=== PATIENT | female | born 1935 | race Caucasian/White ===

== ENCOUNTER 2017-06-15 12:38 | Inpatient (IN) | payer MEDICARE ==
[~2017-06-15] VITALS: Ht 160 cm; Wt 52.2 kg
[2017-06-15 13:10] VITALS: BP 140/79
--- NOTE | 2017-06-15 13:58 | Emergency Room Report ---
History of Present Illness General Chief Complaint: Syncope Source: Family Member (HANNAH CORBETT M.D.) Present Illness HPI 82-year-old female brought from home for question of altered mental status Patient has history of advanced dementia/Alzheimer's Her daughter, caregiver told her yesterday that 2 days ago she noticed a facial droop in patient but unsure which side of mouth droop Daughter felt that since patient was "okay" yesterday, didn't need to go to the hospital for evaluation However this morning daughter and noted patient "more altered than usual ", eyes closed less responsive than usual. Daughter states that patient had already gone through state of dementia with agitation and insomnia, mother now much more calm, relaxed and sleeping better. Of atrial fib, on xarelto No other medical problems, medication Doesnt take any other pain/anxiety medications family denies any recent fever or chills Denies any cough or vomiting recently (HANNAH CORBETT M.D.) Allergies: Coded Allergies: IODINE (Verified Allergy, Unknown, 06/15/17) TURKEY (Verified Allergy, Unknown, 06/15/17) Patient History Past Medical History: AFib Past Surgical History: none Pertinent Family History: none Social History: Denies: smoking, alcohol use, drug use Now: No Immunizations: UTD Reviewed Nursing Documentation: PMH: Agreed, PSxH: Agreed (HANNAH CORBETT M.D.) Review of Systems All Other Systems: negative except mentioned in HPI (HANNAH CORBETT M.D.) Physical Exam Vital Signs Date Time Temp Pulse Resp B/P (MAP) Pulse Ox O2 Delivery O2 Flow Rate FiO2 06/15/17 12:33 98.4 97 140/79 97 Room Air Sp02 EP Interpretation: reviewed, normal General Appearance: normal inspection, well appearing, no apparent distress, non-toxic, other - Response to painful stimuli Head: normocephalic, atraumatic Eyes: bilateral eye PERRL, bilateral eye EOMI ENT: normal ENT inspection, hearing grossly normal, normal pharynx, no angioedema, normal voice, TMs + canals normal, uvula midline, moist mucus membranes Neck: normal inspection, full range of motion, supple, thyroid normal, no meningismus, no bony tend Respiratory: normal inspection, lungs clear, normal breath sounds, no rhonchi, no respiratory distress, no retraction, no accessory muscle use, no wheezing, speaking full sentences Cardiovascular #1: regular rate, rhythm, no edema, no JVD, normal capillary refill Gastrointestinal: normal inspection, normal bowel sounds, non tender, soft, no mass, no peritonitis, non-distended, no guarding, no hernia, no pulsatile mass Genitourinary: no CVA tenderness Musculoskeletal: normal inspection, back normal, normal range of motion, no calf tenderness, pelvis stable, Tierney's Sign negative Neurologic: normal inspection, alert, responsive, motor strength/tone normal, cerebellar normal, normal gait, speech normal, other - Extremities not contracted Psychiatric: normal inspection, judgement/insight normal, mood/affect normal, no suicidal/homicidal ideation, no delusions Skin: normal inspection, normal color, no rash Lymphatic: normal inspection, no adenopathy (HANNAH CORBETT M.D.) Medical Decision Making Diagnostic Impression: Primary Impression: Altered mental status Qualified Codes: R41.82 - Altered mental status, unspecified Additional Impression: UTI (urinary tract infection) Qualified Codes: N30.01 - Acute cystitis with hematuria ER Course Transient alteration in consciousness Vital signs stable, afebrile Patient has atrial fib, however not in RVR No ischemia on EKG CT head on ER review does not show acute bleed Labs pending at time of signout Endorsed at 230pm to Dr Yepez to f/up labs and admit for AMS (HANNAH CORBETT M.D.) ER Course I received signout from Dr. Corbett 82-year-old female Alzheimer's, progressive dementia for the last 6 months, now unresponsive/ lethargic for the last few days Currently at bedside, patient is with eyes closed, moaning incomprehensible sounds, vital signs are normal and stable patient with UTI NS given abx given Admit to med surg Laboratory Tests Test 06/15/17 14:40 06/15/17 16:15 White Blood Count 11.6 K/UL (4.8-10.8) H Red Blood Count 3.74 M/UL (4.20-5.40) L Hemoglobin 11.2 G/DL (12.0-16.0) L Hematocrit 33.8 % (37.0-47.0) L Mean Corpuscular Volume 90 FL (80-99) Mean Corpuscular Hemoglobin 29.9 PG (27.0-31.0) Mean Corpuscular Hemoglobin Concent 33.1 G/DL (32.0-36.0) Red Cell Distribution Width 12.1 % (11.6-14.8) Platelet Count 534 K/UL (150-450) H Mean Platelet Volume 5.5 FL (6.5-10.1) L Neutrophils (%) (Auto) 78.6 % (45.0-75.0) H Lymphocytes (%) (Auto) 11.3 % (20.0-45.0) L Monocytes (%) (Auto) 8.1 % (1.0-10.0) Eosinophils (%) (Auto) 1.3 % (0.0-3.0) Basophils (%) (Auto) 0.7 % (0.0-2.0) Sodium Level 136 MMOL/L (136-145) Potassium Level 4.6 MMOL/L (3.5-5.1) Chloride Level 101 MMOL/L (98-107) Carbon Dioxide Level 27 MMOL/L (21-32) Anion Gap 9 mmol/L (5-15) Blood Urea Nitrogen 20 mg/dL (7-18) H Creatinine 0.6 MG/DL (0.55-1.30) Estimate Glomerular Filtration Rate mL/min (>60) Glucose Level 107 MG/DL (74-106) H Calcium Level 8.4 MG/DL (8.5-10.1) L Total Bilirubin 0.6 MG/DL (0.2-1.0) Aspartate Amino Transferase (AST) 34 U/L (15-37) Alanine Aminotransferase (ALT) 14 U/L (12-78) Alkaline Phosphatase 72 U/L (46-116) Total Creatine Kinase 31 U/L (26-308) Creatine Kinase MB < 0.5 NG/ML (0.0-3.6) Creatine Kinase MB Relative Index 1.6 Troponin I 0.003 ng/mL (0.000-0.056) Total Protein 7.5 G/DL (6.4-8.2) Albumin 2.6 G/DL (3.4-5.0) L Globulin 4.9 g/dL Albumin/Globulin Ratio 0.5 (1.0-2.7) L Urine Color Pale yellow Urine Appearance Cloudy Urine pH 6.5 (4.5-8.0) Urine Specific [place] 1.010 (1.005-1.035) Urine Protein Negative (NEGATIVE) Urine Glucose (UA) Negative (NEGATIVE) Urine Ketones Negative (NEGATIVE) Urine Occult Blood 2+ (NEGATIVE) H Urine Nitrite Negative (NEGATIVE) Urine Bilirubin Negative (NEGATIVE) Urine Urobilinogen Normal MG/DL (0.0-1.0) Urine Leukocyte Esterase 3+ (NEGATIVE) H Urine RBC 5-10 /HPF (0 - 2) H Urine WBC Tntc /HPF (0 - 2) H Urine Squamous Epithelial Cells None /LPF (NONE/OCC) Urine Bacteria Many /HPF (NONE) H (Channing Yepez M.D.) EKG Diagnostic Results Rate: normal Rhythm: other - atrial fib ST Segments: no acute changes ASA given to the pt in ED: No (HANNAH CORBETT M.D.) Rhythm Strip Diag. Results EP Interpretation: yes Rate: 85 Rhythm: no PVC's, no ectopy (HANNAH CORBETT M.D.) CT/MRI/US Diagnostic Results CT/MRI/US Diagnostic Results : Imaging Test Ordered: CT HEad Impression FINDINGS: No acute hemorrhage or edema. No mass effect or midline shift. There is age-related enlargement of the ventricles and extra axial CSF spaces. There is periventricular deep white matter ischemic change. Normal juarez-white differentiation. Visualized orbits are unremarkable. Visualized sinuses are unremarkable. Intact calvarium. IMPRESSION: Chronic and age-related changes. Negative for acute intracranial bleed or mass effect Stat code stroke findings discussed by phone with Dr. Corbett in the emergency room at the time of interpretation (Channing Yepez M.D.) Last Vital Signs Date Time Temp Pulse Resp B/P (MAP) Pulse Ox O2 Delivery O2 Flow Rate FiO2 06/15/17 12:33 98.4 97 140/79 97 Room Air Status: improved (HANNAH CORBETT M.D.) Disposition: ADMITTED INPATIENT Condition: Serious HANNAH CORBETT M.D. Jun 15, 2017 13:58 Channing Yepez M.D. Jun 15, 2017 15:22
--- NOTE | 2017-06-15 14:03 | Diagnostic Imaging Report ---
Indication: Pain Technique: One view of the chest Comparison: none Findings: There is marked elevation of the right hemidiaphragm. The lungs and pleural spaces are clear. The heart size is normal. Impression: No acute process
--- NOTE | 2017-06-15 14:03 | Diagnostic Imaging Report ---
Indication: Altered mental status Technique: spiral acquisitions obtained through the brain. Angled axial and coronal 5 x 5 mm slices were reconstructed. No IV contrast utilized. Radiation dose was minimized using automated exposure control Total dose length product 1400.61 mGycm. CTDIvol(s) 70.38 mGy Comparison: none FINDINGS: No acute hemorrhage or edema. No mass effect or midline shift. There is age-related enlargement of the ventricles and extra axial CSF spaces. There is periventricular deep white matter ischemic change. Normal juarez-white differentiation. Visualized orbits are unremarkable. Visualized sinuses are unremarkable. Intact calvarium. IMPRESSION: Chronic and age-related changes. Negative for acute intracranial bleed or mass effect Stat code stroke findings discussed by phone with Dr. Canela in the emergency room at the time of interpretation The CT scanner at [facility] is accredited by the [employer] and the scans are performed using protocols designed to limit radiation exposure to as low as reasonably achievable to attain images of sufficient resolution adequate for diagnostic evaluation
[2017-06-15 14:25] VITALS: BP 127/84
[2017-06-15 15:04] LABS: BASOPHILS % (AUTO) 0.7 % (0.0-2.0); EOSINOPHILS % (AUTO) 1.3 % (0.0-3.0); HEMATOCRIT 33.8 % (37.0-47.0); HEMOGLOBIN 11.2 G/DL (12.0-16.0); LYMPHOCYTES % (AUTO) 11.3 % (20.0-45.0); MEAN CORPUSCULAR VOLUME 90 FL (80-99); MONOCYTES % (AUTO) 8.1 % (1.0-10.0); NEUTROPHILS % (AUTO) 78.6 % (45.0-75.0); PLATELET COUNT 534 K/UL (150-450); RED BLOOD COUNT 3.74 M/UL (4.20-5.40); RED CELL DISTRIBUTION WIDTH 12.1 % (11.6-14.8); WHITE BLOOD COUNT 11.6 K/UL (4.8-10.8)
[2017-06-15 15:31] LABS: ALANINE AMINOTRANSFERASE 14 U/L (12-78); ALBUMIN 2.6 G/DL (3.4-5.0); ALBUMIN/GLOBULIN RATIO 0.5 (1.0-2.7); ALKALINE PHOSPHATASE 72 U/L (46-116); ANION GAP 9 mmol/L (5-15); ASPARTATE AMINO TRANSFERASE 34 U/L (15-37); BILIRUBIN,TOTAL 0.6 MG/DL (0.2-1.0); CALCIUM 8.4 MG/DL (8.5-10.1); CKMB < 0.5 NG/ML (0.0-3.6)
[2017-06-15 15:52] LABS: BLOOD UREA NITROGEN 20 mg/dL (7-18); CARBON DIOXIDE 27 MMOL/L (21-32); CHLORIDE 101 MMOL/L (98-107); CREATINE KINASE 31 U/L (26-308); CREATININE 0.6 MG/DL (0.55-1.30); POTASSIUM 4.6 MMOL/L (3.5-5.1); SODIUM 136 MMOL/L (136-145)
[2017-06-15 16:32] LABS: APPEARANCE,URINE CLOUDY; BILIRUBIN, URINE NEGATIVE (NEGATIVE); COLOR,URINE PALE YELLOW; GLUCOSE, URINE (UA) NEGATIVE (NEGATIVE); KETONES,URINE NEGATIVE (NEGATIVE); LEUKOCYTE ESTERASE ,URINE 3+ (NEGATIVE); NITRITE,URINE NEGATIVE (NEGATIVE); PH,URINE 6.5 (4.5-8.0); PROTEIN,URINE NEGATIVE (NEGATIVE); UROBILINOGEN,URINE NORMAL MG/DL (0.0-1.0)
[2017-06-15 16:35] VITALS: BP 117/73
[2017-06-15] MEDS ORDERED: cefTRIAXone 1 GM in NS 55 ML IVPB ONE (17:15)
[2017-06-15 18:57] VITALS: BP 147/99
[2017-06-15] MEDS ORDERED: NAMENDA XR7 MG PO (20:06)
[2017-06-15] MEDS ORDERED: CARVEDILOL12.5 MG ORAL (20:06)
[2017-06-15] MEDS ORDERED: MIRTAZAPINE15 M3 ORAL (20:06)
[2017-06-15] MEDS ORDERED: LORAZEPAM0.5 MG ORAL (20:06)
[2017-06-15] MEDS ORDERED: XARELTO15 MG ORAL (20:06)
[2017-06-15 20:47] VITALS: BP 114/95
[2017-06-15 21:51] VITALS: BP 110/68
[2017-06-16] VITALS: BP 137/79
[2017-06-16 04:24] VITALS: BP 148/78
[2017-06-16 08:00] VITALS: BP 133/81
[2017-06-16] MEDS ORDERED: Xarelto 15mg tab ORAL SCH (10:30)
[2017-06-16] MEDS ORDERED: D5 1/2NS 1,000 ML IV SCH (10:30)
[2017-06-16] MEDS: Memantine 5 MG TAB ORAL SCH ×2 (11:17→17:35)
[2017-06-16 12:00] VITALS: BP 121/81
[2017-06-16] MEDS ORDERED: cefTRIAXone 1 GM in D5W 55 ML IVPB SCH (12:00)
--- NOTE | 2017-06-16 15:47 | Consultation ---
History of Present Illness General Date patient seen: Jun 16, 2017 Time patient seen: 13:00 Chief Complaint: Syncope Referring physician: dr Aguirre Reason for Consultation: in hospital management Present Illness HPI 82-y/old female with PMH of A fib, Alzeimer dementia brought from home for evalaution of altered mental status Patient with history of advanced dementia/Alzheimer's On the morning prior to ED arrival family noted patient being "more altered than usual", eyes closed, less responsive than usual. Patient was not on any pain/anti-anxiety medications Family denied any recent fever or chills Family denied any cough, diarrhea or vomiting recently Workup in ED initiated and revealed leukocytosis-11.6 UA with gross evidence of UTI ECG with A fib with controlled ventricular response troponin negative CXR no acute cardiopulmonary pathology CT head no acute intracranial pathology mild anemia- 11.2/33.8 patient was admitted for further management Allergies: Coded Allergies: IODINE (Verified Allergy, Unknown, 06/15/17) TURKEY (Verified Allergy, Unknown, 06/15/17) Medication History Scheduled Carvedilol* (Carvedilol*), 12.5 MG ORAL EVERY 12 HOURS, (Reported) Memantine Hcl (Namenda Xr), 7 MG PO DAILY, (Reported) Mirtazapine* (Mirtazapine*), 15 MG ORAL BEDTIME, (Reported) Rivaroxaban (Xarelto), 15 MG ORAL DAILY, (Reported) Scheduled PRN Lorazepam* (Lorazepam*), 0.5 MG ORAL for For Anxiety, (Reported) Patient History History Provided By: Medical Record Healthcare decision maker Family Resuscitation status Full Code Advanced Directive on File No Review of Systems ROS Narrative unable to obtain any info due to ALOC Physical Exam General Appearance: no apparent distress, alert Lines, tubes and drains: peripheral HEENT: normocephalic, atraumatic Neck: non-tender, supple Respiratory/Chest: lungs clear, no respiratory distress, no accessory muscle use Cardiovascular/Chest: normal peripheral pulses, normal rate, no JVD Abdomen: normal bowel sounds, soft Extremities: non-tender, no calf tenderness, other - extremities not contracted Last 24 Hour Vital Signs Date Time Temp Pulse Resp B/P (MAP) Pulse Ox O2 Delivery O2 Flow Rate FiO2 06/16/17 12:00 98.8 134 19 121/81 95 06/16/17 08:00 99.7 114 19 133/81 94 Room Air 06/16/17 04:24 96.5 111 18 148/78 98 Room Air 06/16/17 00:00 98.9 95 19 137/79 98 Room Air 06/15/17 21:51 85 20 110/68 100 Room Air 06/15/17 21:51 98.4 85 20 114/95 100 Room Air 06/15/17 20:47 98.4 104 14 114/95 99 Room Air 06/15/17 18:57 98.4 147/99 97 Room Air 06/15/17 16:35 98.4 117/73 97 Room Air Intake and Output 06/15/17 06/16/17 19:00 07:00 Intake Total 0 ml Output Total 975 ml Balance 0 ml -975 ml Intake Oral 0 ml Output Urine Total 975 ml # Bowel Movements 1 Laboratory Tests Test 06/15/17 16:15 Urine Color Pale yellow Urine Appearance Cloudy Urine pH 6.5 (4.5-8.0) Urine Specific [place] 1.010 (1.005-1.035) Urine Protein Negative (NEGATIVE) Urine Glucose (UA) Negative (NEGATIVE) Urine Ketones Negative (NEGATIVE) Urine Occult Blood 2+ (NEGATIVE) H Urine Nitrite Negative (NEGATIVE) Urine Bilirubin Negative (NEGATIVE) Urine Urobilinogen Normal MG/DL (0.0-1.0) Urine Leukocyte Esterase 3+ (NEGATIVE) H Urine RBC 5-10 /HPF (0 - 2) H Urine WBC Tntc /HPF (0 - 2) H Urine Squamous Epithelial Cells None /LPF (NONE/OCC) Urine Bacteria Many /HPF (NONE) H Microbiology Date/Time Source Procedure Growth Status 06/15/17 16:15 Urine,Clean Catch Urine Culture - Preliminary Gram Negative Bacillus 1 Resulted Height (Feet): 5 Height (Inches): 3.00 Weight (Pounds): 115 Medications Current Medications Medications (Trade) Dose Ordered Sig/Chris Route PRN Reason Start Time Stop Time Status Last Admin Dose Admin Carvedilol (Coreg) 3.125 mg EVERY 12 HOURS ORAL 06/16/17 21:00 07/16/17 20:59 Ceftriaxone Sodium 1 gm/ Dextrose 55 ml @ 110 mls/hr Q24H IVPB 06/16/17 12:00 06/23/17 11:59 06/16/17 11:27 Dextrose/Sodium Chloride 1,000 ml @ 75 mls/hr [id number] IV 06/16/17 10:30 07/16/17 10:29 06/16/17 11:00 Memantine (Namenda) 5 mg BID ORAL 06/16/17 10:30 07/16/17 10:29 06/16/17 11:17 Rivaroxaban (Xarelto) 15 mg DAILY ORAL 06/16/17 10:30 07/16/17 10:29 06/16/17 11:17 Assessment/Plan Assessment/Plan ASSESSMENT Acute toxic metabolic encephalopathy on chronic dementia UTI with GNB Permanent A fib WITH rvr NOW ? accelerated junctional rhythm Protein calorie malnutrition advanced Alzheimer dementia anemia PLAN OF CARE IVF empiric abx fup with urine cx home meds resumed, including BB and Xarelto ECG done now due to tachycardia- accelerated junctional rhythm 110-, under close examining - AFib with RVR cardio eval pending transfer to tele monitor HH, anemia w/up if trend down swallow eval dietary eval and recommendations re nutritional support case discussed and evaluated by supervising physician Curt (Luke),Adriana REYES Jun 16, 2017 15:47
[2017-06-16 16:00] VITALS: BP 119/78
--- NOTE | 2017-06-16 16:58 | History & Physical ---
History and Physical History & Physicial Dictated for Int Med-Dr Aguirre no. [id number]. KSENIA PEREZ Jun 16, 2017 16:58
--- NOTE | 2017-06-16 18:00 | History and Physical Report ---
DATE OF ADMISSION: 06/15/2017 CHIEF COMPLAINT: The patient is an 82-year-old white female, who presents with chief complaint of altered mental status. HISTORY OF PRESENT ILLNESS: Much of the history and physical is obtained from the patient's caregiver and the patient's . The patient herself has Alzheimer dementia and is unable to contribute much to the history and physical. Per the patient's , the patient "looked like she was going to faint" yesterday, 06/15/2017. The patient's has a home blood pressure monitor. Blood pressure was reading 67/40. The patient was somewhat unresponsive. The patient was transported to [facility] via emergency medical services. The patient was found to have atrial fibrillation with rapid ventricular rate in the emergency room. The patient also was found to have urinary tract infection. The patient is admitted for altered mental status, urinary tract infection, and atrial fibrillation with rapid ventricular rate. REVIEW OF SYSTEMS: unable to assess secondary to the patient's mental status. PAST MEDICAL HISTORY: Significant for: 1. Alzheimer dementia. 2. Atrial fibrillation. PAST SURGICAL HISTORY: The patient denies. CURRENT MEDICATIONS: 1. Carvedilol 12.5 mg p.o. twice daily. 2. Lorazepam 0.5 mg p.o. q.6 hours p.r.n. 3. Namenda XR 7 mg p.o. daily. 4. Mirtazapine 15 mg p.o. p.r.n. 5. Xarelto 15 mg p.o. daily. ALLERGIES: To iodine and turkey. SOCIAL HISTORY: The patient is . The patient lives at home with her . The patient denies tobacco or alcohol use. PHYSICAL EXAMINATION: VITAL SIGNS: Temperature 98.4, respirations 20, pulse 85-134, blood pressure 110-148/78-95. GENERAL: The patient is a well-developed, well-nourished, somnolent white female, in no apparent distress. HEENT: Eyes, pupils equal and responsive to light and accommodation. Extraocular movements are intact. NECK: Supple without lymphadenopathy. CHEST: Lungs are clear to auscultation bilaterally without wheezes or rales. CARDIOVASCULAR: Regular rate. S1, S2 normal without murmurs, rubs, or gallops. ABDOMEN: Soft, nontender, nondistended. Positive bowel sounds. No evidence of hepatosplenomegaly. Currently, no rebound or guarding noted. EXTREMITIES: Negative for clubbing, cyanosis, or edema. RECTAL: Refused. GENITAL: Refused. NEUROLOGICAL: Cranial nerves II through XII grossly intact without focal deficits. Motor strength is 5/5 bilaterally. Deep tendon reflexes are 2+, plantar. LABORATORY STUDIES: WBC 11.6, hemoglobin 11.2, hematocrit 33.8, platelets 534,000. Sodium 136, potassium 4.6, chloride 101, CO2 27, BUN 20, creatinine 0.6, glucose 107. Troponin 0.003. Urinalysis showed 3+ leukocyte esterase with WBCs too numerous to count. Chest x-ray was reported as no acute disease. A CT scan of the brain revealed chronic age-related changes, however, negative for intracranial bleed or mass effect. ASSESSMENT: This is an 82-year-old white female with: 1. Urinary tract infection. 2. Altered mental status. 3. Atrial fibrillation with rapid ventricular rate. 4. Alzheimer dementia. TREATMENT: 1. Urinary tract infection. The patient has been placed empirically on Rocephin. A urine culture is pending. We will await culture and sensitivity results. 2. Altered mental status. This may be secondary to urinary tract infection versus acute cerebrovascular accident versus atrial fibrillation as above. Neurology consultation has been obtained with Dr. Cooley and cardiology consultation has been obtained with Dr. Osuna. We will follow recommendations of cardiology and neurology. 3. Atrial fibrillation with rapid ventricular rate. The patient will be transferred to the telemetry unit. Cardiology consultation has been obtained with Dr. Chip Osuna. 4. Alzheimer dementia. Continue Namenda as above. Clay Rick M.D. DR: Olu JOB#: [id number] CC:
[2017-06-16 18:55] LABS: BASOPHILS % (AUTO) 2.1 % (0.0-2.0); EOSINOPHILS % (AUTO) 1.6 % (0.0-3.0); HEMATOCRIT 32.8 % (37.0-47.0); HEMOGLOBIN 10.6 G/DL (12.0-16.0); LYMPHOCYTES % (AUTO) 14.9 % (20.0-45.0); MEAN CORPUSCULAR VOLUME 90 FL (80-99); MONOCYTES % (AUTO) 7.6 % (1.0-10.0); NEUTROPHILS % (AUTO) 73.8 % (45.0-75.0); PLATELET COUNT 542 K/UL (150-450); RED BLOOD COUNT 3.63 M/UL (4.20-5.40); RED CELL DISTRIBUTION WIDTH 11.5 % (11.6-14.8); WHITE BLOOD COUNT 10.7 K/UL (4.8-10.8)
--- NOTE | 2017-06-16 18:55 | Cardiac Electrophysiology PN ---
Subjective Subjective [id number] Objective Last 24 Hour Vital Signs Date Time Temp Pulse Resp B/P (MAP) Pulse Ox O2 Delivery O2 Flow Rate FiO2 06/16/17 16:00 99.0 103 18 119/78 98 06/16/17 12:00 98.8 134 19 121/81 95 06/16/17 08:00 99.7 114 19 133/81 94 Room Air 06/16/17 04:24 96.5 111 18 148/78 98 Room Air 06/16/17 00:00 98.9 95 19 137/79 98 Room Air 06/15/17 21:51 85 20 110/68 100 Room Air 06/15/17 21:51 98.4 85 20 114/95 100 Room Air 06/15/17 20:47 98.4 104 14 114/95 99 Room Air 06/15/17 18:57 98.4 147/99 97 Room Air Intake and Output 06/15/17 06/16/17 19:00 07:00 Intake Total 0 ml Output Total 975 ml Balance 0 ml -975 ml Intake Oral 0 ml Output Urine Total 975 ml # Bowel Movements 1 Laboratory Tests Test 06/16/17 18:25 White Blood Count Pending Red Blood Count Pending Hemoglobin Pending Hematocrit Pending Mean Corpuscular Volume Pending Mean Corpuscular Hemoglobin Pending Mean Corpuscular Hemoglobin Concent Pending Red Cell Distribution Width Pending Platelet Count Pending Mean Platelet Volume Pending Neutrophils (%) (Auto) Pending Lymphocytes (%) (Auto) Pending Monocytes (%) (Auto) Pending Eosinophils (%) (Auto) Pending Basophils (%) (Auto) Pending Sodium Level Pending Potassium Level Pending Chloride Level Pending Carbon Dioxide Level Pending Blood Urea Nitrogen Pending Creatinine Pending Estimat Glomerular Filtration Rate Pending Glucose Level Pending Calcium Level Pending Troponin I Pending Pro-B-Type Natriuretic Peptide Pending Microbiology Date/Time Source Procedure Growth Status 06/15/17 16:15 Urine,Clean Catch Urine Culture - Preliminary Gram Negative Bacillus 1 Resulted JOSE WHITLOCK Jun 16, 2017 18:55
[2017-06-16] MEDS ORDERED: Digoxin 0.5mg/2ml Inj IVP ONE ×2 (19:00)
[2017-06-16 19:15] LABS: ANION GAP 9 mmol/L (5-15); BLOOD UREA NITROGEN 19 mg/dL (7-18); CALCIUM 7.8 MG/DL (8.5-10.1); CARBON DIOXIDE 24 MMOL/L (21-32); CHLORIDE 102 MMOL/L (98-107); CREATININE 0.9 MG/DL (0.55-1.30); SODIUM 135 MMOL/L (136-145)
[2017-06-16 20:06] VITALS: BP 141/89
[2017-06-16] MEDS: Carvedilol 6.25mg Tab ORAL SCH (20:29)
[2017-06-16] MEDS: D5 1/2NS 1,000 ML IV SCH (20:33)
[2017-06-16] MEDS ORDERED: Carvedilol 6.25mg Tab ORAL SCH (21:00)
--- NOTE | 2017-06-16 21:15 | Consultation ---
DATE OF CONSULTATION: 06/16/2017 CARDIOLOGY CONSULTATION CONSULTING PHYSICIAN: Chip Osuna M.D. REFERRING PHYSICIAN: Nhan Aguirre M.D. REASON FOR CONSULTATION: Atrial fibrillation with rapid ventricular response. HISTORY OF PRESENT ILLNESS: The patient is an 82-year-old lady with history of hypertension and paroxysmal atrial fibrillation under care of who now was brought to the emergency room for altered mental status. All the information was obtained by reviewing the patient's records as well as intervening the patient's as well as caregiver. She has advanced dementia and unable to provide much information. The patient has a home blood pressure monitored that showed a blood pressure of 67/40. The patient was partially unresponsive. The patient was brought to the emergency room and was admitted straight to the non-monitored bed for urinary tract infection. However, the patient was noted to be tachycardic, atrial fibrillation with rapid ventricular response and was then transferred to the telemetry floor. At the time of my evaluation, the patient is still confused and is still tachycardic with heart rate in the 130s. PAST MEDICAL HISTORY: 1. Hypertension. 2. Paroxysmal atrial fibrillation. MEDICATIONS: At home include Coreg 12.5 mg twice a day, Namenda, and . ALLERGIES: She is allergic to iodine and turkey. SOCIAL HISTORY: She is . Lives with her . Does not smoke or drink alcohol. REVIEW OF SYSTEMS: Negative other than what was mentioned in history of present illness. PHYSICAL EXAMINATION: VITAL SIGNS: Blood pressure 118/90, pulse 135, respirations 18, and she is afebrile. HEAD AND NECK: Shows no JVD. LUNGS: Decreased breath sounds. CARDIOVASCULAR: Shows irregularly irregular. Tachycardic. S1 and S2 with no gallop or murmur. ABDOMEN: Soft and nontender. EXTREMITIES: No pitting edema. LABORATORY AND DIAGNOSTIC DATA: EKG showed atrial fibrillation with rapid ventricular response. Labs show white count of 11.6, hemoglobin 11.2, hematocrit 33.8, and platelet count 534. Sodium 136, potassium 4.3, BUN of 20, creatinine 0.6, and glucose of 107. Troponin negative x2. Urinalysis is numerous WBC and 2+ occult blood, many bacteria. ASSESSMENT AND PLAN: 1. Atrial fibrillation with rapid ventricular response. The patient is already on Xarelto for anticoagulation. I will give the patient 0.25 mg of intravenous digoxin and hopefully get the heart rate better controlled. If that does not do the trick we may need to transfer the patient to intensive care to start the patient on Cardizem drip. In the meantime, I will increase the Coreg to 6.25 mg twice a day. 2. Hypertension. Increase the Coreg. 3. Urinary tract infection on ceftriaxone. 4. Dementia on Namenda. Thank you very much, Dr. Aguirre, for allowing me to participate in the care of this patient. Please do not hesitate to contact for any questions regarding my evaluation. Chip Osuna M.D. DR: HAILEY JOB#: [id number] CC:
[2017-06-17 00:05] VITALS: BP 103/58
[2017-06-17 03:54] VITALS: BP 120/59
[2017-06-17 07:41] LABS: BASOPHILS % (AUTO) 1.1 % (0.0-2.0); EOSINOPHILS % (AUTO) 2.1 % (0.0-3.0); HEMATOCRIT 27.9 % (37.0-47.0); HEMOGLOBIN 9.3 G/DL (12.0-16.0); LYMPHOCYTES % (AUTO) 27.7 % (20.0-45.0); MEAN CORPUSCULAR VOLUME 90 FL (80-99); MONOCYTES % (AUTO) 10.7 % (1.0-10.0); NEUTROPHILS % (AUTO) 58.4 % (45.0-75.0); PLATELET COUNT 446 K/UL (150-450); RED BLOOD COUNT 3.09 M/UL (4.20-5.40); WHITE BLOOD COUNT 6.8 K/UL (4.8-10.8)
[2017-06-17 08:12] LABS: ALANINE AMINOTRANSFERASE 9 U/L (12-78); ALBUMIN/GLOBULIN RATIO 0.4 (1.0-2.7); ALKALINE PHOSPHATASE 56 U/L (46-116); ANION GAP 8 mmol/L (5-15); ASPARTATE AMINO TRANSFERASE 14 U/L (15-37); BILIRUBIN,TOTAL 0.3 MG/DL (0.2-1.0); BLOOD UREA NITROGEN 20 mg/dL (7-18); CALCIUM 7.9 MG/DL (8.5-10.1); CARBON DIOXIDE 25 MMOL/L (21-32); CHLORIDE 104 MMOL/L (98-107); CREATININE 0.6 MG/DL (0.55-1.30); PHOSPHORUS 3.3 MG/DL (2.5-4.9); POTASSIUM 3.8 MMOL/L (3.5-5.1); SODIUM 136 MMOL/L (136-145)
[2017-06-17] MEDS: Memantine 5 MG TAB ORAL SCH ×2 (08:29→17:53)
[2017-06-17] MEDS: Xarelto 15mg tab ORAL SCH (08:30)
[2017-06-17 08:52] VITALS: BP 105/60
[2017-06-17] MEDS: D5 1/2NS 1,000 ML IV SCH ×2 (09:50→21:58)
[2017-06-17] MEDS: Carvedilol 6.25mg Tab ORAL SCH ×2 (10:49→21:58)
[2017-06-17 11:38] VITALS: BP 112/60
[2017-06-17] MEDS: cefTRIAXone 1 GM in D5W 55 ML IVPB SCH (12:41)
--- NOTE | 2017-06-17 13:00 | Internal Med Progress Note ---
Subjective Date of Service: Jun 17, 2017 Physician Name Ksenia Perez Attending Physician Nhan Aguirre MD Current Medications Medications (Trade) Dose Ordered Sig/Chris Route PRN Reason Start Time Stop Time Status Last Admin Dose Admin Carvedilol (Coreg) 6.25 mg EVERY 12 HOURS ORAL 06/16/17 21:00 07/16/17 20:59 06/17/17 10:49 Ceftriaxone Sodium 1 gm/ Dextrose 55 ml @ 110 mls/hr Q24H IVPB 06/17/17 12:00 06/23/17 11:59 06/17/17 12:41 Dextrose/Sodium Chloride 1,000 ml @ 75 mls/hr [id number] IV 06/16/17 20:30 07/16/17 20:29 06/17/17 09:50 Lorazepam (Ativan) 0.5 mg Q6H PRN ORAL For Anxiety 06/17/17 13:00 06/24/17 12:59 UNV Memantine (Namenda) 5 mg BID ORAL 06/17/17 09:00 07/16/17 10:29 06/17/17 08:29 Rivaroxaban (Xarelto) 15 mg DAILY ORAL 06/17/17 09:00 07/16/17 10:29 06/17/17 08:30 Allergies: Coded Allergies: IODINE (Verified Allergy, Unknown, 06/15/17) TURKEY (Verified Allergy, Unknown, 06/15/17) ROS Limited/Unobtainable: No Constitutional: Reports: no symptoms HEENT: Reports: no symptoms Cardiovascular: Reports: no symptoms Respiratory: Reports: no symptoms Gastrointestinal/Abdominal: Reports: no symptoms Genitourinary: Reports: no symptoms Neurologic/Psychiatric: Reports: no symptoms Subjective 82 YO F admitted with altered mental status. Now UTI and atrial fibrillation with rapid ventricular rate. Cover for Int Osmin-Dr Aguirre Objective Last Vital Signs Date Time Temp Pulse Resp B/P (MAP) Pulse Ox O2 Delivery O2 Flow Rate FiO2 06/17/17 11:38 98.0 81 18 112/60 96 Room Air General Appearance: WD/WN, no apparent distress, alert EENT: PERRL/EOMI, normal ENT inspection Neck: non-tender, normal alignment, supple, normal inspection Cardiovascular: normal peripheral pulses, no gallop/murmur, no JVD, irregularly irregular Respiratory/Chest: chest wall non-tender, lungs clear, normal breath sounds, no respiratory distress, no accessory muscle use Abdomen: normal bowel sounds, non tender, soft, no organomegaly, no mass Extremities: normal range of motion, non-tender 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 normal, no motor/sensory deficits Skin: normal pigmentation, warm/dry Laboratory Tests Test 06/16/17 18:25 06/17/17 06:30 White Blood Count 10.7 K/UL (4.8-10.8) 6.8 K/UL (4.8-10.8) Red Blood Count 3.63 M/UL (4.20-5.40) L 3.09 M/UL (4.20-5.40) L Hemoglobin 10.6 G/DL (12.0-16.0) L 9.3 G/DL (12.0-16.0) L Hematocrit 32.8 % (37.0-47.0) L 27.9 % (37.0-47.0) L Mean Corpuscular Volume 90 FL (80-99) 90 FL (80-99) Mean Corpuscular Hemoglobin 29.1 PG (27.0-31.0) 30.0 PG (27.0-31.0) Mean Corpuscular Hemoglobin Concent 32.2 G/DL (32.0-36.0) 33.3 G/DL (32.0-36.0) Red Cell Distribution Width 11.5 % (11.6-14.8) L 12.0 % (11.6-14.8) Platelet Count 542 K/UL (150-450) H 446 K/UL (150-450) Mean Platelet Volume 5.1 FL (6.5-10.1) L 5.5 FL (6.5-10.1) L Neutrophils (%) (Auto) 73.8 % (45.0-75.0) 58.4 % (45.0-75.0) Lymphocytes (%) (Auto) 14.9 % (20.0-45.0) L 27.7 % (20.0-45.0) Monocytes (%) (Auto) 7.6 % (1.0-10.0) 10.7 % (1.0-10.0) H Eosinophils (%) (Auto) 1.6 % (0.0-3.0) 2.1 % (0.0-3.0) Basophils (%) (Auto) 2.1 % (0.0-2.0) H 1.1 % (0.0-2.0) Sodium Level 135 MMOL/L (136-145) L 136 MMOL/L (136-145) Potassium Level 4.0 MMOL/L (3.5-5.1) 3.8 MMOL/L (3.5-5.1) Chloride Level 102 MMOL/L (98-107) 104 MMOL/L (98-107) Carbon Dioxide Level 24 MMOL/L (21-32) 25 MMOL/L (21-32) Anion Gap 9 mmol/L (5-15) 8 mmol/L (5-15) Blood Urea Nitrogen 19 mg/dL (7-18) H 20 mg/dL (7-18) H Creatinine 0.9 MG/DL (0.55-1.30) 0.6 MG/DL (0.55-1.30) Estimat Glomerular Filtration Rate mL/min (>60) mL/min (>60) Glucose Level 173 MG/DL (74-106) H 87 MG/DL (74-106) Calcium Level 7.8 MG/DL (8.5-10.1) L 7.9 MG/DL (8.5-10.1) L Troponin I 0.000 ng/mL (0.000-0.056) 0.007 ng/mL (0.000-0.056) Pro-B-Type Natriuretic Peptide 1959 pg/mL (0-125) H Phosphorus Level 3.3 MG/DL (2.5-4.9) Magnesium Level 1.9 MG/DL (1.8-2.4) Total Bilirubin 0.3 MG/DL (0.2-1.0) Aspartate Amino Transf (AST/SGOT) 14 U/L (15-37) L Alanine Aminotransferase (ALT/SGPT) 9 U/L (12-78) L Alkaline Phosphatase 56 U/L (46-116) Total Protein 6.6 G/DL (6.4-8.2) Albumin 2.0 G/DL (3.4-5.0) L Globulin 4.6 g/dL Albumin/Globulin Ratio 0.4 (1.0-2.7) L Thyroid Stimulating Hormone (TSH) 6.484 uiU/mL (0.358-3.740) Free Thyroxine 1.17 NG/DL (0.76-1.46) Digoxin Level 1.1 NG/ML (0.9-2.0) Microbiology Date/Time Source Procedure Growth Status 06/15/17 16:15 Urine,Clean Catch Urine Culture - Final Escherichia Coli Complete Intake and Output 06/16/17 06/17/17 19:00 07:00 Intake Total 865 ml Output Total 300 ml Balance 865 ml -300 ml Intake Oral 360 ml IV Total 505 ml Output Urine Total 300 ml Assessment/Plan Problem List: (1) Atrial fibrillation with rapid ventricular response Assessment & Plan: Better controlled today-See cardilogy note. Continue digoxin and xarelto. (2) Alzheimer's dementia (3) UTI (urinary tract infection) Assessment & Plan: E. coli. Continue ceftriaxone (4) Altered mental status Assessment & Plan: Metabolic encephalopathy due to UTI. Status: not improved KSENIA PEREZ Jun 17, 2017 13:00
--- NOTE | 2017-06-17 14:24 | Cardiac Electrophysiology PN ---
Assessment/Plan Assessment/Plan 1. Atrial fibrillation with rapid ventricular response. On Xarelto 15 daily . Start digoxin 0.125 daily and Coreg 6.25 mg twice a day. 2. Hypertension. On Coreg. 3. Urinary tract infection on ceftriaxone. 4. Dementia on Namenda. DW RN Subjective Subjective Remained in atrial fib but rate is controlled in 70s. Objective Last 24 Hour Vital Signs Date Time Temp Pulse Resp B/P (MAP) Pulse Ox O2 Delivery O2 Flow Rate FiO2 06/17/17 11:38 98.0 81 18 112/60 96 Room Air 06/17/17 10:49 81 110/62 06/17/17 08:52 98.1 77 18 105/60 96 Room Air 06/17/17 07:41 74 06/17/17 04:00 66 06/17/17 03:54 98.2 76 18 120/59 95 Room Air 06/17/17 00:05 98.4 88 18 103/58 95 Room Air 06/17/17 00:00 89 06/16/17 20:29 112 151/75 06/16/17 20:06 98.6 137 19 141/89 96 Room Air 06/16/17 20:00 96 06/16/17 19:08 140 06/16/17 19:00 140 06/16/17 16:00 99.0 103 18 119/78 98 Intake and Output 06/16/17 06/17/17 19:00 07:00 Intake Total 865 ml Output Total 300 ml Balance 865 ml -300 ml Intake Oral 360 ml IV Total 505 ml Output Urine Total 300 ml Laboratory Tests Test 06/16/17 18:25 06/17/17 06:30 White Blood Count 10.7 K/UL (4.8-10.8) 6.8 K/UL (4.8-10.8) Red Blood Count 3.63 M/UL (4.20-5.40) L 3.09 M/UL (4.20-5.40) L Hemoglobin 10.6 G/DL (12.0-16.0) L 9.3 G/DL (12.0-16.0) L Hematocrit 32.8 % (37.0-47.0) L 27.9 % (37.0-47.0) L Mean Corpuscular Volume 90 FL (80-99) 90 FL (80-99) Mean Corpuscular Hemoglobin 29.1 PG (27.0-31.0) 30.0 PG (27.0-31.0) Mean Corpuscular Hemoglobin Concent 32.2 G/DL (32.0-36.0) 33.3 G/DL (32.0-36.0) Red Cell Distribution Width 11.5 % (11.6-14.8) L 12.0 % (11.6-14.8) Platelet Count 542 K/UL (150-450) H 446 K/UL (150-450) Mean Platelet Volume 5.1 FL (6.5-10.1) L 5.5 FL (6.5-10.1) L Neutrophils (%) (Auto) 73.8 % (45.0-75.0) 58.4 % (45.0-75.0) Lymphocytes (%) (Auto) 14.9 % (20.0-45.0) L 27.7 % (20.0-45.0) Monocytes (%) (Auto) 7.6 % (1.0-10.0) 10.7 % (1.0-10.0) H Eosinophils (%) (Auto) 1.6 % (0.0-3.0) 2.1 % (0.0-3.0) Basophils (%) (Auto) 2.1 % (0.0-2.0) H 1.1 % (0.0-2.0) Sodium Level 135 MMOL/L (136-145) L 136 MMOL/L (136-145) Potassium Level 4.0 MMOL/L (3.5-5.1) 3.8 MMOL/L (3.5-5.1) Chloride Level 102 MMOL/L (98-107) 104 MMOL/L (98-107) Carbon Dioxide Level 24 MMOL/L (21-32) 25 MMOL/L (21-32) Anion Gap 9 mmol/L (5-15) 8 mmol/L (5-15) Blood Urea Nitrogen 19 mg/dL (7-18) H 20 mg/dL (7-18) H Creatinine 0.9 MG/DL (0.55-1.30) 0.6 MG/DL (0.55-1.30) Estimat Glomerular Filtration Rate mL/min (>60) mL/min (>60) Glucose Level 173 MG/DL (74-106) H 87 MG/DL (74-106) Calcium Level 7.8 MG/DL (8.5-10.1) L 7.9 MG/DL (8.5-10.1) L Troponin I 0.000 ng/mL (0.000-0.056) 0.007 ng/mL (0.000-0.056) Pro-B-Type Natriuretic Peptide 1959 pg/mL (0-125) H Phosphorus Level 3.3 MG/DL (2.5-4.9) Magnesium Level 1.9 MG/DL (1.8-2.4) Total Bilirubin 0.3 MG/DL (0.2-1.0) Aspartate Amino Transf (AST/SGOT) 14 U/L (15-37) L Alanine Aminotransferase (ALT/SGPT) 9 U/L (12-78) L Alkaline Phosphatase 56 U/L (46-116) Total Protein 6.6 G/DL (6.4-8.2) Albumin 2.0 G/DL (3.4-5.0) L Globulin 4.6 g/dL Albumin/Globulin Ratio 0.4 (1.0-2.7) L Thyroid Stimulating Hormone (TSH) 6.484 uiU/mL (0.358-3.740) Free Thyroxine 1.17 NG/DL (0.76-1.46) Digoxin Level 1.1 NG/ML (0.9-2.0) Microbiology Date/Time Source Procedure Growth Status 06/15/17 16:15 Urine,Clean Catch Urine Culture - Final Escherichia Coli Complete Objective HEAD AND NECK: Shows no JVD. LUNGS: Decreased breath sounds. CARDIOVASCULAR: Shows irregularly irregular. Tachycardic. S1 and S2 with no gallop or murmur. ABDOMEN: Soft and nontender. EXTREMITIES: No pitting edema. JOSE WHITLOCK Jun 17, 2017 14:24
--- NOTE | 2017-06-17 15:07 | Pulmonology Progress Note ---
Assessment/Plan Assessment/Plan ASSESSMENT Acute toxic metabolic encephalopathy on chronic dementia UTI with E coli Permanent A fib with RVR Protein calorie malnutrition advanced Alzheimer dementia anemia PLAN OF CARE tele IVF abx urine cx + E coli home meds resumed, including BB and Xarelto cardio follows s/p IV Digoxin now on BB ( dose increased by cardio) and Digoxin rate controlled; Dig level ok Xarelto continue monitor HH, trending down anemia w/up , stool OB swallow eval dietary eval and recommendations re nutritional support case discussed and evaluated by supervising physician Subjective Allergies: Coded Allergies: IODINE (Verified Allergy, Unknown, 06/15/17) TURKEY (Verified Allergy, Unknown, 06/15/17) Subjective seen by cardio remains in A fib rate controlled no signs of respiratory distress Objective Last 24 Hour Vital Signs Date Time Temp Pulse Resp B/P (MAP) Pulse Ox O2 Delivery O2 Flow Rate FiO2 06/17/17 11:38 98.0 81 18 112/60 96 Room Air 06/17/17 10:49 81 110/62 06/17/17 08:52 98.1 77 18 105/60 96 Room Air 06/17/17 07:41 74 06/17/17 04:00 66 06/17/17 03:54 98.2 76 18 120/59 95 Room Air 06/17/17 00:05 98.4 88 18 103/58 95 Room Air 06/17/17 00:00 89 06/16/17 20:29 112 151/75 06/16/17 20:06 98.6 137 19 141/89 96 Room Air 06/16/17 20:00 96 06/16/17 19:08 140 06/16/17 19:00 140 06/16/17 16:00 99.0 103 18 119/78 98 Intake and Output 06/16/17 06/17/17 19:00 07:00 Intake Total 865 ml Output Total 300 ml Balance 865 ml -300 ml Intake Oral 360 ml IV Total 505 ml Output Urine Total 300 ml Objective General Appearance: no apparent distress, alert Lines, tubes and drains: peripheral HEENT: normocephalic, atraumatic Neck: non-tender, supple Respiratory/Chest: lungs clear, no respiratory distress, no accessory muscle use Cardiovascular/Chest: normal peripheral pulses, normal rate, no JVD Abdomen: normal bowel sounds, soft Extremities: non-tender, no calf tenderness, extremities not contracted Microbiology Date/Time Source Procedure Growth Status 06/15/17 16:15 Urine,Clean Catch Urine Culture - Final Escherichia Coli Complete Laboratory Tests 06/16/17 18:25: White Blood Count 10.7, Red Blood Count 3.63L, Hemoglobin 10.6L, Hematocrit 32.8L, Mean Corpuscular Volume 90, Mean Corpuscular Hemoglobin 29.1, Mean Corpuscular Hemoglobin Concent 32.2, Red Cell Distribution Width 11.5L, Platelet Count 542H, Mean Platelet Volume 5.1L, Neutrophils (%) (Auto) 73.8, Lymphocytes (%) (Auto) 14.9L, Monocytes (%) (Auto) 7.6, Eosinophils (%) (Auto) 1.6, Basophils (%) (Auto) 2.1H, Sodium Level 135L, Potassium Level 4.0, Chloride Level 102, Carbon Dioxide Level 24, Anion Gap 9, Blood Urea Nitrogen 19H, Creatinine 0.9, Estimat Glomerular Filtration Rate , Glucose Level 173H, Calcium Level 7.8L, Troponin I 0.000, Pro-B-Type Natriuretic Peptide 1959H 06/17/17 06:30: White Blood Count 6.8, Red Blood Count 3.09L, Hemoglobin 9.3L, Hematocrit 27.9L , Mean Corpuscular Volume 90, Mean Corpuscular Hemoglobin 30.0, Mean Corpuscular Hemoglobin Concent 33.3, Red Cell Distribution Width 12.0, Platelet Count 446, Mean Platelet Volume 5.5L, Neutrophils (%) (Auto) 58.4, Lymphocytes ( %) (Auto) 27.7, Monocytes (%) (Auto) 10.7H, Eosinophils (%) (Auto) 2.1, Basophils (%) (Auto) 1.1, Sodium Level 136, Potassium Level 3.8, Chloride Level 104, Carbon Dioxide Level 25, Anion Gap 8, Blood Urea Nitrogen 20H, Creatinine 0.6, Estimat Glomerular Filtration Rate , Glucose Level 87, Calcium Level 7.9L, Troponin I 0.007, Phosphorus Level 3.3, Magnesium Level 1.9, Total Bilirubin 0.3 , Aspartate Amino Transf (AST/SGOT) 14L, Alanine Aminotransferase (ALT/SGPT) 9L , Alkaline Phosphatase 56, Total Protein 6.6, Albumin 2.0L, Globulin 4.6, Albumin/Globulin Ratio 0.4L, Thyroid Stimulating Hormone (TSH) 6.484H, Free Thyroxine 1.17, Digoxin Level 1.1 Current Medications Medications (Trade) Dose Ordered Sig/Chris Route PRN Reason Start Time Stop Time Status Last Admin Dose Admin Carvedilol (Coreg) 6.25 mg EVERY 12 HOURS ORAL 06/16/17 21:00 07/16/17 20:59 06/17/17 10:49 Ceftriaxone Sodium 1 gm/ Dextrose 55 ml @ 110 mls/hr Q24H IVPB 06/17/17 12:00 06/23/17 11:59 06/17/17 12:41 Dextrose/Sodium Chloride 1,000 ml @ 75 mls/hr [id number] IV 06/16/17 20:30 07/16/17 20:29 06/17/17 09:50 Digoxin (Lanoxin) 0.125 mg DAILY ORAL 06/18/17 09:00 07/18/17 08:59 Lorazepam (Ativan) 0.5 mg Q6H PRN ORAL For Anxiety 06/17/17 13:00 06/24/17 12:59 Memantine (Namenda) 5 mg BID ORAL 06/17/17 09:00 07/16/17 10:29 06/17/17 08:29 Rivaroxaban (Xarelto) 15 mg DAILY ORAL 06/17/17 09:00 07/16/17 10:29 06/17/17 08:30 Curt Carbajal)Adriana NP Jun 17, 2017 15:07
[2017-06-17] MEDS ORDERED: NS 500ML ONE (15:50)
[2017-06-17 16:00] VITALS: BP 125/80
[2017-06-17] MEDS: LORazepam 0.5mg tab ORAL PRN (17:56)
[2017-06-17] MEDS ORDERED: Digoxin 0.5mg/2ml Inj IVP ONE (19:00)
[2017-06-17 20:00] VITALS: BP 127/60
[2017-06-18] VITALS (7 sets, daily range): BP systolic 121–139; BP diastolic 61–83
[2017-06-18] MEDS: LORazepam 0.5mg tab ORAL PRN ×3 (00:16→20:36)
[2017-06-18] MEDS: Carvedilol 6.25mg Tab ORAL SCH ×2 (08:09→20:36)
[2017-06-18] MEDS: Xarelto 15mg tab ORAL SCH (08:10)
[2017-06-18] MEDS: Memantine 5 MG TAB ORAL SCH ×2 (08:10→17:28)
[2017-06-18] MEDS ORDERED: Digoxin 0.125mg tab ORAL SCH (09:00)
[2017-06-18 09:20] LABS: BASOPHILS % (AUTO) 0.7 % (0.0-2.0); HEMATOCRIT 27.8 % (37.0-47.0); HEMOGLOBIN 9.1 G/DL (12.0-16.0); LYMPHOCYTES % (AUTO) 19.7 % (20.0-45.0); MEAN CORPUSCULAR VOLUME 90 FL (80-99); MONOCYTES % (AUTO) 13.6 % (1.0-10.0); NEUTROPHILS % (AUTO) 63.1 % (45.0-75.0); PLATELET COUNT 433 K/UL (150-450); RED BLOOD COUNT 3.07 M/UL (4.20-5.40); RED CELL DISTRIBUTION WIDTH 11.8 % (11.6-14.8); WHITE BLOOD COUNT 6.8 K/UL (4.8-10.8)
[2017-06-18 09:35] LABS: % IRON SATURATION 10 % (15-50); IRON 14 ug/dL (50-175); TOTAL IRON BINDING CAPACITY 134 ug/dL (250-450)
[2017-06-18 09:51] LABS: ANION GAP 8 mmol/L (5-15); BLOOD UREA NITROGEN 14 mg/dL (7-18); CALCIUM 7.4 MG/DL (8.5-10.1); CARBON DIOXIDE 25 MMOL/L (21-32); CHLORIDE 104 MMOL/L (98-107); CREATININE 0.6 MG/DL (0.55-1.30); FERRITIN 799 NG/ML (8-388); POTASSIUM 3.7 MMOL/L (3.5-5.1); SODIUM 137 MMOL/L (136-145)
[2017-06-18 11:28] LABS: APPEARANCE,URINE CLEAR; BILIRUBIN, URINE NEGATIVE (NEGATIVE); COLOR,URINE PALE YELLOW; GLUCOSE, URINE (UA) NEGATIVE (NEGATIVE); KETONES,URINE NEGATIVE (NEGATIVE); LEUKOCYTE ESTERASE ,URINE NEGATIVE (NEGATIVE); NITRITE,URINE NEGATIVE (NEGATIVE); PH,URINE 7 (4.5-8.0); PROTEIN,URINE NEGATIVE (NEGATIVE); UROBILINOGEN,URINE NORMAL MG/DL (0.0-1.0)
[2017-06-18] MEDS: cefTRIAXone 1 GM in D5W 55 ML IVPB SCH (12:13)
[2017-06-18] MEDS: D5 1/2NS 1,000 ML IV SCH ×3 (12:30→19:03)
--- NOTE | 2017-06-18 12:55 | Internal Med Progress Note ---
Subjective Date of Service: Jun 18, 2017 Physician Name Clay Perez Attending Physician Nhan Aguirre MD Current Medications Medications (Trade) Dose Ordered Sig/Chris Route PRN Reason Start Time Stop Time Status Last Admin Dose Admin Acetaminophen (Tylenol) 650 mg Q8H PRN ORAL Mild Pain/Temp > 100.5 06/18/17 09:15 07/18/17 09:14 Carvedilol (Coreg) 6.25 mg EVERY 12 HOURS ORAL 06/17/17 21:00 07/17/17 20:59 06/18/17 08:09 Ceftriaxone Sodium 1 gm/ Dextrose 55 ml @ 110 mls/hr Q24H IVPB 06/17/17 12:00 06/23/17 11:59 06/18/17 12:13 Dextrose/Sodium Chloride 1,000 ml @ 75 mls/hr [id number] IV 06/16/17 20:30 07/16/17 20:29 06/17/17 21:58 Digoxin (Lanoxin) 0.125 mg DAILY ORAL 06/18/17 09:00 07/18/17 08:59 06/18/17 08:10 Lorazepam (Ativan) 0.5 mg Q6H PRN ORAL For Anxiety 06/17/17 13:00 06/24/17 12:59 06/18/17 06:30 Memantine (Namenda) 5 mg BID ORAL 06/17/17 09:00 07/16/17 10:29 06/18/17 08:10 Mirtazapine (Remeron) 15 mg BEDTIME ORAL 06/18/17 21:00 07/18/17 20:59 Rivaroxaban (Xarelto) 15 mg DAILY ORAL 06/17/17 09:00 07/16/17 10:29 06/18/17 08:10 Allergies: Coded Allergies: IODINE (Verified Allergy, Unknown, 06/15/17) TURKEY (Verified Allergy, Unknown, 06/15/17) ROS Limited/Unobtainable: No Constitutional: Reports: no symptoms HEENT: Reports: no symptoms Cardiovascular: Reports: no symptoms Respiratory: Reports: no symptoms Gastrointestinal/Abdominal: Reports: no symptoms Genitourinary: Reports: no symptoms Neurologic/Psychiatric: Reports: no symptoms Subjective 82 YO F admitted with altered mental status. Now UTI and atrial fibrillation with rapid ventricular rate. Cover for Int Med-Dr Aguirre Objective Last Vital Signs Date Time Temp Pulse Resp B/P (MAP) Pulse Ox O2 Delivery O2 Flow Rate FiO2 06/18/17 12:20 98.1 98 18 139/83 100 Room Air Laboratory Tests Test 06/18/17 07:00 06/18/17 09:47 White Blood Count 6.8 K/UL (4.8-10.8) Red Blood Count 3.07 M/UL (4.20-5.40) L Hemoglobin 9.1 G/DL (12.0-16.0) L Hematocrit 27.8 % (37.0-47.0) L Mean Corpuscular Volume 90 FL (80-99) Mean Corpuscular Hemoglobin 29.8 PG (27.0-31.0) Mean Corpuscular Hemoglobin Concent 32.9 G/DL (32.0-36.0) Red Cell Distribution Width 11.8 % (11.6-14.8) Platelet Count 433 K/UL (150-450) Mean Platelet Volume 5.6 FL (6.5-10.1) L Neutrophils (%) (Auto) 63.1 % (45.0-75.0) Lymphocytes (%) (Auto) 19.7 % (20.0-45.0) L Monocytes (%) (Auto) 13.6 % (1.0-10.0) H Eosinophils (%) (Auto) 3.0 % (0.0-3.0) Basophils (%) (Auto) 0.7 % (0.0-2.0) Sodium Level 137 MMOL/L (136-145) Potassium Level 3.7 MMOL/L (3.5-5.1) Chloride Level 104 MMOL/L (98-107) Carbon Dioxide Level 25 MMOL/L (21-32) Anion Gap 8 mmol/L (5-15) Blood Urea Nitrogen 14 mg/dL (7-18) Creatinine 0.6 MG/DL (0.55-1.30) Estimat Glomerular Filtration Rate mL/min (>60) Glucose Level 101 MG/DL (74-106) Calcium Level 7.4 MG/DL (8.5-10.1) L Iron Level 14 ug/dL (50-175) L Total Iron Binding Capacity 134 ug/dL (250-450) L Percent Iron Saturation 10 % (15-50) L Unsaturated Iron Binding 120 ug/dL (112-346) Ferritin 799 NG/ML (8-388) H Vitamin B12 Level 295 PG/ML (193-986) RBC Folate Hemolysate Pending Red Blood Cell Folate Pending Digoxin Level 0.5 NG/ML (0.9-2.0) L Urine Color Pale yellow Urine Appearance Clear Urine pH 7 (4.5-8.0) Urine Specific [place] 1.005 (1.005-1.035) Urine Protein Negative (NEGATIVE) Urine Glucose (UA) Negative (NEGATIVE) Urine Ketones Negative (NEGATIVE) Urine Occult Blood Negative (NEGATIVE) Urine Nitrite Negative (NEGATIVE) Urine Bilirubin Negative (NEGATIVE) Urine Urobilinogen Normal MG/DL (0.0-1.0) Urine Leukocyte Esterase Negative (NEGATIVE) Urine RBC 0 /HPF (0 - 2) Urine WBC 0-2 /HPF (0 - 2) Urine Squamous Epithelial Cells Occasional /LPF Urine Bacteria Occasional /HPF (NONE) Microbiology Date/Time Source Procedure Growth Status 06/15/17 16:15 Urine,Clean Catch Urine Culture - Final Escherichia Coli Complete Intake and Output 06/17/17 06/18/17 19:00 07:00 Intake Total 1557 ml 675 ml Output Total 1800 ml 700 ml Balance -243 ml -25 ml Intake Oral 772 ml IV Total 785 ml 675 ml Output Urine Total 1800 ml 700 ml # Voids 1 # Bowel Movements 2 8 Objective General Appearance: WD/WN, no apparent distress, alert EENT: PERRL/EOMI, normal ENT inspection Neck: non-tender, normal alignment, supple, normal inspection Cardiovascular: normal peripheral pulses, no gallop/murmur, no JVD, irregularly irregular Respiratory/Chest: chest wall non-tender, lungs clear, normal breath sounds, no respiratory distress, no accessory muscle use Abdomen: normal bowel sounds, non tender, soft, no organomegaly, no mass Extremities: normal range of motion, non-tender 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 Continue digoxin, coreg and xarelto. (2) Alzheimer's dementia (3) UTI (urinary tract infection) Assessment & Plan: E. coli. Continue ceftriaxone (4) Altered mental status Assessment & Plan: Metabolic encephalopathy due to UTI. Status: progressing CLAY PEREZ Jun 18, 2017 12:54
--- NOTE | 2017-06-18 14:16 | Pulmonology Progress Note ---
Assessment/Plan Assessment/Plan ASSESSMENT Acute toxic metabolic encephalopathy on chronic dementia UTI with E coli Permanent A fib with RVR Protein calorie malnutrition advanced Alzheimer dementia anemia of chronic disease PLAN OF CARE tele IVF abx urine cx + E coli home meds resumed, including BB and Xarelto cardio follows s/p IV Digoxin now on BB ( dose increased by cardio) and Digoxin rate controlled; Dig level ok Xarelto continue monitor HH, trending down anemia w/up with low iron and high ferritin , stool OB+ swallow eval dietary eval and recommendations re nutritional support probably can be transferred to MD if ok with cardio dc plan as per attending case discussed and evaluated by supervising physician Subjective Allergies: Coded Allergies: IODINE (Verified Allergy, Unknown, 06/15/17) TURKEY (Verified Allergy, Unknown, 06/15/17) Subjective remains in A fib rate controlled no signs of respiratory distress more awake and responsive Objective Last 24 Hour Vital Signs Date Time Temp Pulse Resp B/P (MAP) Pulse Ox O2 Delivery O2 Flow Rate FiO2 06/18/17 12:20 98.1 98 18 139/83 100 Room Air 06/18/17 11:35 98 06/18/17 08:10 88 06/18/17 08:09 88 121/61 06/18/17 08:03 84 06/18/17 07:34 99.4 88 18 121/61 100 Room Air 06/18/17 04:00 99.4 89 23 137/71 100 Room Air 06/18/17 04:00 96 06/18/17 00:00 105 06/18/17 00:00 98.6 106 20 128/75 97 Room Air 06/17/17 21:58 92 127/60 06/17/17 20:00 99.0 92 20 127/60 95 Room Air 06/17/17 20:00 94 06/17/17 16:24 76 06/17/17 16:00 98.0 104 18 125/80 96 Room Air Intake and Output 06/17/17 06/18/17 19:00 07:00 Intake Total 1557 ml 675 ml Output Total 1800 ml 700 ml Balance -243 ml -25 ml Intake Oral 772 ml IV Total 785 ml 675 ml Output Urine Total 1800 ml 700 ml # Voids 1 # Bowel Movements 2 8 Objective General Appearance: no apparent distress, alert Lines, tubes and drains: peripheral HEENT: normocephalic, atraumatic Neck: non-tender, supple Respiratory/Chest: lungs clear, no respiratory distress, no accessory muscle use Cardiovascular/Chest: normal peripheral pulses, normal rate, no JVD Abdomen: normal bowel sounds, soft Extremities: non-tender, no calf tenderness, extremities not contracted Microbiology Date/Time Source Procedure Growth Status 06/15/17 16:15 Urine,Clean Catch Urine Culture - Final Escherichia Coli Complete Laboratory Tests 06/18/17 07:00: White Blood Count 6.8, Red Blood Count 3.07L, Hemoglobin 9.1L, Hematocrit 27.8L , Mean Corpuscular Volume 90, Mean Corpuscular Hemoglobin 29.8, Mean Corpuscular Hemoglobin Concent 32.9, Red Cell Distribution Width 11.8, Platelet Count 433, Mean Platelet Volume 5.6L, Neutrophils (%) (Auto) 63.1, Lymphocytes ( %) (Auto) 19.7L, Monocytes (%) (Auto) 13.6H, Eosinophils (%) (Auto) 3.0, Basophils (%) (Auto) 0.7, Sodium Level 137, Potassium Level 3.7, Chloride Level 104, Carbon Dioxide Level 25, Anion Gap 8, Blood Urea Nitrogen 14, Creatinine 0.6, Estimat Glomerular Filtration Rate , Glucose Level 101, Calcium Level 7.4L , Iron Level 14L, Total Iron Binding Capacity 134L, Percent Iron Saturation 10L , Unsaturated Iron Binding 120, Ferritin 799H, Vitamin B12 Level 295, RBC Folate Hemolysate [Pending], Red Blood Cell Folate [Pending], Digoxin Level 0.5L 06/18/17 09:47: Urine Color Pale yellow, Urine Appearance Clear, Urine pH 7, Urine Specific [place] 1.005, Urine Protein Negative, Urine Glucose (UA) Negative, Urine Ketones Negative, Urine Occult Blood Negative, Urine Nitrite Negative, Urine Bilirubin Negative, Urine Urobilinogen Normal, Urine Leukocyte Esterase Negative , Urine RBC 0, Urine WBC 0-2, Urine Squamous Epithelial Cells Occasional, Urine Bacteria Occasional Current Medications Medications (Trade) Dose Ordered Sig/Chris Route PRN Reason Start Time Stop Time Status Last Admin Dose Admin Acetaminophen (Tylenol) 650 mg Q8H PRN ORAL Mild Pain/Temp > 100.5 06/18/17 09:15 07/18/17 09:14 Carvedilol (Coreg) 6.25 mg EVERY 12 HOURS ORAL 06/17/17 21:00 07/17/17 20:59 06/18/17 08:09 Ceftriaxone Sodium 1 gm/ Dextrose 55 ml @ 110 mls/hr Q24H IVPB 06/17/17 12:00 06/23/17 11:59 06/18/17 12:13 Dextrose/Sodium Chloride 1,000 ml @ 75 mls/hr [id number] IV 06/16/17 20:30 07/16/17 20:29 06/18/17 13:15 Digoxin (Lanoxin) 0.125 mg DAILY ORAL 06/18/17 09:00 07/18/17 08:59 06/18/17 08:10 Lorazepam (Ativan) 0.5 mg Q6H PRN ORAL For Anxiety 06/17/17 13:00 06/24/17 12:59 06/18/17 06:30 Memantine (Namenda) 5 mg BID ORAL 06/17/17 09:00 07/16/17 10:29 06/18/17 08:10 Mirtazapine (Remeron) 15 mg BEDTIME ORAL 06/18/17 21:00 07/18/17 20:59 Rivaroxaban (Xarelto) 15 mg DAILY ORAL 06/17/17 09:00 07/16/17 10:29 06/18/17 08:10 Curt (Freddydenise)Adriana NP Jun 18, 2017 14:16
--- NOTE | 2017-06-18 15:34 | Cardiac Electrophysiology PN ---
Assessment/Plan Assessment/Plan 1. Atrial fibrillation with rapid ventricular response. On Xarelto 15 daily . HR better on digoxin 0.125 daily and Coreg 6.25 mg twice a day. 2. Hypertension. On Coreg. 3. Urinary tract infection on ceftriaxone. 4. Dementia on Namenda. HANK RN Subjective Subjective Remained in atrial fib with controlled rate Objective Last 24 Hour Vital Signs Date Time Temp Pulse Resp B/P (MAP) Pulse Ox O2 Delivery O2 Flow Rate FiO2 06/18/17 12:20 98.1 98 18 139/83 100 Room Air 06/18/17 11:35 98 06/18/17 08:10 88 06/18/17 08:09 88 121/61 06/18/17 08:03 84 06/18/17 07:34 99.4 88 18 121/61 100 Room Air 06/18/17 04:00 99.4 89 23 137/71 100 Room Air 06/18/17 04:00 96 06/18/17 00:00 105 06/18/17 00:00 98.6 106 20 128/75 97 Room Air 06/17/17 21:58 92 127/60 06/17/17 20:00 99.0 92 20 127/60 95 Room Air 06/17/17 20:00 94 06/17/17 16:24 76 06/17/17 16:00 98.0 104 18 125/80 96 Room Air Intake and Output 06/17/17 06/18/17 19:00 07:00 Intake Total 1557 ml 675 ml Output Total 1800 ml 700 ml Balance -243 ml -25 ml Intake Oral 772 ml IV Total 785 ml 675 ml Output Urine Total 1800 ml 700 ml # Voids 1 # Bowel Movements 2 8 Laboratory Tests Test 06/18/17 07:00 06/18/17 09:47 White Blood Count 6.8 K/UL (4.8-10.8) Red Blood Count 3.07 M/UL (4.20-5.40) L Hemoglobin 9.1 G/DL (12.0-16.0) L Hematocrit 27.8 % (37.0-47.0) L Mean Corpuscular Volume 90 FL (80-99) Mean Corpuscular Hemoglobin 29.8 PG (27.0-31.0) Mean Corpuscular Hemoglobin Concent 32.9 G/DL (32.0-36.0) Red Cell Distribution Width 11.8 % (11.6-14.8) Platelet Count 433 K/UL (150-450) Mean Platelet Volume 5.6 FL (6.5-10.1) L Neutrophils (%) (Auto) 63.1 % (45.0-75.0) Lymphocytes (%) (Auto) 19.7 % (20.0-45.0) L Monocytes (%) (Auto) 13.6 % (1.0-10.0) H Eosinophils (%) (Auto) 3.0 % (0.0-3.0) Basophils (%) (Auto) 0.7 % (0.0-2.0) Sodium Level 137 MMOL/L (136-145) Potassium Level 3.7 MMOL/L (3.5-5.1) Chloride Level 104 MMOL/L (98-107) Carbon Dioxide Level 25 MMOL/L (21-32) Anion Gap 8 mmol/L (5-15) Blood Urea Nitrogen 14 mg/dL (7-18) Creatinine 0.6 MG/DL (0.55-1.30) Estimat Glomerular Filtration Rate mL/min (>60) Glucose Level 101 MG/DL (74-106) Calcium Level 7.4 MG/DL (8.5-10.1) L Iron Level 14 ug/dL (50-175) L Total Iron Binding Capacity 134 ug/dL (250-450) L Percent Iron Saturation 10 % (15-50) L Unsaturated Iron Binding 120 ug/dL (112-346) Ferritin 799 NG/ML (8-388) H Vitamin B12 Level 295 PG/ML (193-986) RBC Folate Hemolysate Pending Red Blood Cell Folate Pending Digoxin Level 0.5 NG/ML (0.9-2.0) L Urine Color Pale yellow Urine Appearance Clear Urine pH 7 (4.5-8.0) Urine Specific [place] 1.005 (1.005-1.035) Urine Protein Negative (NEGATIVE) Urine Glucose (UA) Negative (NEGATIVE) Urine Ketones Negative (NEGATIVE) Urine Occult Blood Negative (NEGATIVE) Urine Nitrite Negative (NEGATIVE) Urine Bilirubin Negative (NEGATIVE) Urine Urobilinogen Normal MG/DL (0.0-1.0) Urine Leukocyte Esterase Negative (NEGATIVE) Urine RBC 0 /HPF (0 - 2) Urine WBC 0-2 /HPF (0 - 2) Urine Squamous Epithelial Cells Occasional /LPF Urine Bacteria Occasional /HPF (NONE) Microbiology Date/Time Source Procedure Growth Status 06/15/17 16:15 Urine,Clean Catch Urine Culture - Final Escherichia Coli Complete Objective HEAD AND NECK: Shows no JVD. LUNGS: Decreased breath sounds. CARDIOVASCULAR: Shows irregularly irregular S1 and S2 with no gallop or murmur. ABDOMEN: Soft and nontender. EXTREMITIES: No pitting edema. JOSE WHITLOCK Jun 18, 2017 15:34
[2017-06-19 04:00] VITALS: BP 150/89
[2017-06-19 07:35] LABS: BASOPHILS % (AUTO) 1.1 % (0.0-2.0); EOSINOPHILS % (AUTO) 1.8 % (0.0-3.0); HEMATOCRIT 28.3 % (37.0-47.0); HEMOGLOBIN 9.5 G/DL (12.0-16.0); LYMPHOCYTES % (AUTO) 18.3 % (20.0-45.0); MEAN CORPUSCULAR VOLUME 90 FL (80-99); MONOCYTES % (AUTO) 10.2 % (1.0-10.0); NEUTROPHILS % (AUTO) 68.6 % (45.0-75.0); PLATELET COUNT 457 K/UL (150-450); RED BLOOD COUNT 3.14 M/UL (4.20-5.40); RED CELL DISTRIBUTION WIDTH 11.8 % (11.6-14.8); WHITE BLOOD COUNT 8.6 K/UL (4.8-10.8)
[2017-06-19 07:47] LABS: ANION GAP 8 mmol/L (5-15); BLOOD UREA NITROGEN 11 mg/dL (7-18); CALCIUM 7.5 MG/DL (8.5-10.1); CARBON DIOXIDE 25 MMOL/L (21-32); CHLORIDE 104 MMOL/L (98-107); CREATININE 0.6 MG/DL (0.55-1.30); POTASSIUM 3.8 MMOL/L (3.5-5.1); SODIUM 137 MMOL/L (136-145)
[2017-06-19] MEDS: D5 1/2NS 1,000 ML IV SCH (07:48)
[2017-06-19 08:00] VITALS: BP 151/85
[2017-06-19] MEDS: Memantine 5 MG TAB ORAL SCH ×2 (09:07→18:27)
[2017-06-19] MEDS: Xarelto 15mg tab ORAL SCH (09:07)
[2017-06-19] MEDS: Digoxin 0.125mg tab ORAL SCH (09:08)
[2017-06-19] MEDS: Carvedilol 6.25mg Tab ORAL SCH ×2 (09:09→20:24)
--- NOTE | 2017-06-19 11:20 | Internal Med Progress Note ---
Subjective Date of Service: Jun 19, 2017 Physician Name Ksenia Perez Attending Physician Nhan Aguirre MD Current Medications Medications (Trade) Dose Ordered Sig/Chris Route PRN Reason Start Time Stop Time Status Last Admin Dose Admin Acetaminophen (Tylenol) 650 mg Q8H PRN ORAL Mild Pain/Temp > 100.5 06/18/17 18:39 07/18/17 18:38 Carvedilol (Coreg) 6.25 mg EVERY 12 HOURS ORAL 06/18/17 21:00 07/17/17 20:59 06/19/17 09:09 Ceftriaxone Sodium 1 gm/ Dextrose 55 ml @ 110 mls/hr Q24H IVPB 06/19/17 12:00 06/23/17 11:59 Dextrose/Sodium Chloride 1,000 ml @ 75 mls/hr [id number] IV 06/18/17 18:30 07/16/17 20:29 06/19/17 07:48 Digoxin (Lanoxin) 0.125 mg DAILY ORAL 06/19/17 09:00 07/18/17 08:59 06/19/17 09:08 Lorazepam (Ativan) 0.5 mg Q6H PRN ORAL For Anxiety 06/18/17 18:38 06/24/17 18:37 06/18/17 20:36 Memantine (Namenda) 5 mg BID ORAL 06/19/17 09:00 07/16/17 10:29 06/19/17 09:07 Mirtazapine (Remeron) 15 mg BEDTIME ORAL 06/18/17 21:00 07/18/17 20:59 06/18/17 20:36 Rivaroxaban (Xarelto) 15 mg DAILY ORAL 06/19/17 09:00 07/16/17 10:29 06/19/17 09:07 Allergies: Coded Allergies: IODINE (Verified Allergy, Unknown, 06/15/17) TURKEY (Verified Allergy, Unknown, 06/15/17) ROS Limited/Unobtainable: No Constitutional: Reports: no symptoms HEENT: Reports: no symptoms Cardiovascular: Reports: no symptoms Respiratory: Reports: no symptoms Gastrointestinal/Abdominal: Reports: no symptoms Genitourinary: Reports: no symptoms Neurologic/Psychiatric: Reports: no symptoms Subjective 82 YO F admitted with altered mental status. Now UTI and atrial fibrillation with rapid ventricular rate. C/O diarrhea. Hypotensive. Cover for Int Osmin-Dr Aguirre Objective Last Vital Signs Date Time Temp Pulse Resp B/P (MAP) Pulse Ox O2 Delivery O2 Flow Rate FiO2 06/19/17 09:09 102 151/85 06/19/17 08:00 98.7 19 97 06/19/17 04:00 Room Air Laboratory Tests Test 06/19/17 05:35 White Blood Count 8.6 K/UL (4.8-10.8) Red Blood Count 3.14 M/UL (4.20-5.40) L Hemoglobin 9.5 G/DL (12.0-16.0) L Hematocrit 28.3 % (37.0-47.0) L Mean Corpuscular Volume 90 FL (80-99) Mean Corpuscular Hemoglobin 30.3 PG (27.0-31.0) Mean Corpuscular Hemoglobin Concent 33.7 G/DL (32.0-36.0) Red Cell Distribution Width 11.8 % (11.6-14.8) Platelet Count 457 K/UL (150-450) H Mean Platelet Volume 5.6 FL (6.5-10.1) L Neutrophils (%) (Auto) 68.6 % (45.0-75.0) Lymphocytes (%) (Auto) 18.3 % (20.0-45.0) L Monocytes (%) (Auto) 10.2 % (1.0-10.0) H Eosinophils (%) (Auto) 1.8 % (0.0-3.0) Basophils (%) (Auto) 1.1 % (0.0-2.0) Sodium Level 137 MMOL/L (136-145) Potassium Level 3.8 MMOL/L (3.5-5.1) Chloride Level 104 MMOL/L (98-107) Carbon Dioxide Level 25 MMOL/L (21-32) Anion Gap 8 mmol/L (5-15) Blood Urea Nitrogen 11 mg/dL (7-18) Creatinine 0.6 MG/DL (0.55-1.30) Estimat Glomerular Filtration Rate mL/min (>60) Glucose Level 101 MG/DL (74-106) Calcium Level 7.5 MG/DL (8.5-10.1) L Digoxin Level 0.5 NG/ML (0.9-2.0) L Microbiology Date/Time Source Procedure Growth Status 06/18/17 21:45 Stool Clostridium difficile Toxin Assay - Final Complete 06/18/17 09:47 Indwelling Cath Urine Culture - Preliminary NO GROWTH Resulted Intake and Output 06/18/17 06/19/17 19:00 07:00 Intake Total 1375 ml 945 ml Output Total 800 ml Balance 1375 ml 145 ml Intake Oral 440 ml 120 ml IV Total 935 ml 825 ml Output Urine Total 800 ml # Bowel Movements 6 Objective General Appearance: WD/WN, no apparent distress, alert EENT: PERRL/EOMI, normal ENT inspection Neck: non-tender, normal alignment, supple, normal inspection Cardiovascular: normal peripheral pulses, no gallop/murmur, no JVD, irregularly irregular Respiratory/Chest: chest wall non-tender, lungs clear, normal breath sounds, no respiratory distress, no accessory muscle use Abdomen: normal bowel sounds, non tender, soft, no organomegaly, no mass Extremities: normal range of motion, non-tender 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 Continue digoxin, coreg and xarelto. (2) Alzheimer's dementia (3) UTI (urinary tract infection) Assessment & Plan: E. coli. Continue ceftriaxone (4) Altered mental status Assessment & Plan: Metabolic encephalopathy due to UTI. (5) Diarrhea Assessment & Plan: C. Diff neg. Start imodium prn (6) Hypotension Assessment & Plan: /dehydration due to diarrhea? Fluid bolus KSENIA PEREZ Jun 19, 2017 11:20
[2017-06-19 12:00] VITALS: BP 125/76
[2017-06-19] MEDS ORDERED: cefTRIAXone 1 GM in D5W 55 ML IVPB SCH (12:00)
[2017-06-19] MEDS ORDERED: NS 250 ML IVPB ONE (12:05)
[2017-06-19] MEDS ORDERED: Loperamide 2mg cap ORAL PRN (12:15)
[2017-06-19 12:57] LABS: BASOPHILS % (AUTO) 1.1 % (0.0-2.0); EOSINOPHILS % (AUTO) 1.5 % (0.0-3.0); HEMATOCRIT 27.1 % (37.0-47.0); LYMPHOCYTES % (AUTO) 18.7 % (20.0-45.0); MEAN CORPUSCULAR VOLUME 90 FL (80-99); MONOCYTES % (AUTO) 11.7 % (1.0-10.0); PLATELET COUNT 456 K/UL (150-450); RED BLOOD COUNT 2.99 M/UL (4.20-5.40); RED CELL DISTRIBUTION WIDTH 11.9 % (11.6-14.8); WHITE BLOOD COUNT 9.9 K/UL (4.8-10.8)
--- NOTE | 2017-06-19 13:31 | Cardiac Electrophysiology PN ---
Assessment/Plan Assessment/Plan 1. Atrial fibrillation with rapid ventricular response. On Xarelto 15 daily .Continue digoxin 0.125 daily and Coreg 6.25 mg twice a day. 2. Hypertension. On Coreg. 3. Urinary tract infection on ceftriaxone. 4. Dementia on Namenda. HANK RN Subjective Subjective Transferred to [facility]. Comfortable Objective Last 24 Hour Vital Signs Date Time Temp Pulse Resp B/P (MAP) Pulse Ox O2 Delivery O2 Flow Rate FiO2 06/19/17 09:09 102 151/85 06/19/17 09:08 104 06/19/17 08:00 98.7 104 19 151/85 97 06/19/17 04:00 98.5 102 20 150/89 97 Room Air 06/18/17 20:36 98 123/68 06/18/17 20:00 97.5 98 18 123/68 97 Room Air 06/18/17 18:30 98.0 97 18 135/81 100 Room Air 06/18/17 18:09 98.2 95 18 132/70 100 Room Air Intake and Output 06/18/17 06/19/17 19:00 07:00 Intake Total 1375 ml 945 ml Output Total 800 ml Balance 1375 ml 145 ml Intake Oral 440 ml 120 ml IV Total 935 ml 825 ml Output Urine Total 800 ml # Bowel Movements 6 Laboratory Tests Test 06/19/17 05:35 06/19/17 12:15 White Blood Count 8.6 K/UL (4.8-10.8) 9.9 K/UL (4.8-10.8) Red Blood Count 3.14 M/UL (4.20-5.40) L 2.99 M/UL (4.20-5.40) L Hemoglobin 9.5 G/DL (12.0-16.0) L 9.0 G/DL (12.0-16.0) L Hematocrit 28.3 % (37.0-47.0) L 27.1 % (37.0-47.0) L Mean Corpuscular Volume 90 FL (80-99) 90 FL (80-99) Mean Corpuscular Hemoglobin 30.3 PG (27.0-31.0) 30.2 PG (27.0-31.0) Mean Corpuscular Hemoglobin Concent 33.7 G/DL (32.0-36.0) 33.4 G/DL (32.0-36.0) Red Cell Distribution Width 11.8 % (11.6-14.8) 11.9 % (11.6-14.8) Platelet Count 457 K/UL (150-450) H 456 K/UL (150-450) H Mean Platelet Volume 5.6 FL (6.5-10.1) L 5.4 FL (6.5-10.1) L Neutrophils (%) (Auto) 68.6 % (45.0-75.0) 67.0 % (45.0-75.0) Lymphocytes (%) (Auto) 18.3 % (20.0-45.0) L 18.7 % (20.0-45.0) L Monocytes (%) (Auto) 10.2 % (1.0-10.0) H 11.7 % (1.0-10.0) H Eosinophils (%) (Auto) 1.8 % (0.0-3.0) 1.5 % (0.0-3.0) Basophils (%) (Auto) 1.1 % (0.0-2.0) 1.1 % (0.0-2.0) Sodium Level 137 MMOL/L (136-145) Potassium Level 3.8 MMOL/L (3.5-5.1) Chloride Level 104 MMOL/L (98-107) Carbon Dioxide Level 25 MMOL/L (21-32) Anion Gap 8 mmol/L (5-15) Blood Urea Nitrogen 11 mg/dL (7-18) Creatinine 0.6 MG/DL (0.55-1.30) Estimat Glomerular Filtration Rate mL/min (>60) Glucose Level 101 MG/DL (74-106) Calcium Level 7.5 MG/DL (8.5-10.1) L Digoxin Level 0.5 NG/ML (0.9-2.0) L Microbiology Date/Time Source Procedure Growth Status 06/18/17 21:45 Stool Clostridium difficile Toxin Assay - Final Complete 06/18/17 09:47 Indwelling Cath Urine Culture - Preliminary NO GROWTH Resulted Objective HEAD AND NECK: Shows no JVD. LUNGS: Decreased breath sounds. CARDIOVASCULAR: Shows irregularly irregular S1 and S2 with no gallop or murmur. ABDOMEN: Soft and nontender. EXTREMITIES: No pitting edema. JOSE WHITLOCK Jun 19, 2017 13:31
[2017-06-19 16:00] VITALS: BP 148/60
--- NOTE | 2017-06-19 19:51 | Pulmonology Progress Note ---
Assessment/Plan Problems: (1) Hypotension (2) Atrial fibrillation with rapid ventricular response (3) UTI (urinary tract infection) (4) Anemia (5) Altered mental status Assessment/Plan heart rate better decrease IV fluids anemia w/u continue abx dvt prophylaxis. Subjective ROS Limited/Unobtainable: Yes Interval Events: comfortable Allergies: Coded Allergies: IODINE (Verified Allergy, Unknown, 06/15/17) TURKEY (Verified Allergy, Unknown, 06/15/17) Objective Last 24 Hour Vital Signs Date Time Temp Pulse Resp B/P (MAP) Pulse Ox O2 Delivery O2 Flow Rate FiO2 06/19/17 16:00 97.0 61 19 148/60 96 06/19/17 12:00 98.2 74 17 125/76 96 06/19/17 09:09 102 151/85 06/19/17 09:08 104 06/19/17 08:00 98.7 104 19 151/85 97 06/19/17 04:00 98.5 102 20 150/89 97 Room Air 06/18/17 20:36 98 123/68 06/18/17 20:00 97.5 98 18 123/68 97 Room Air Intake and Output 06/18/17 06/19/17 19:00 07:00 Intake Total 1375 ml 945 ml Output Total 800 ml Balance 1375 ml 145 ml Intake Oral 440 ml 120 ml IV Total 935 ml 825 ml Output Urine Total 800 ml # Bowel Movements 6 General Appearance: cachetic HEENT: normocephalic, atraumatic Respiratory/Chest: chest wall non-tender, lungs clear Breasts: no masses Cardiovascular: regular rhythm Abdomen: no scars Extremities: no clubbing Skin: no lesions 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 Microbiology Date/Time Source Procedure Growth Status 06/18/17 21:45 Stool Clostridium difficile Toxin Assay - Final Complete 06/18/17 09:47 Indwelling Cath Urine Culture - Preliminary NO GROWTH Resulted Laboratory Tests 06/19/17 05:35: White Blood Count 8.6, Red Blood Count 3.14L, Hemoglobin 9.5L, Hematocrit 28.3L , Mean Corpuscular Volume 90, Mean Corpuscular Hemoglobin 30.3, Mean Corpuscular Hemoglobin Concent 33.7, Red Cell Distribution Width 11.8, Platelet Count 457H, Mean Platelet Volume 5.6L, Neutrophils (%) (Auto) 68.6, Lymphocytes (%) (Auto) 18.3L, Monocytes (%) (Auto) 10.2H, Eosinophils (%) (Auto) 1.8, Basophils (%) (Auto) 1.1, Sodium Level 137, Potassium Level 3.8, Chloride Level 104, Carbon Dioxide Level 25, Anion Gap 8, Blood Urea Nitrogen 11, Creatinine 0.6, Estimat Glomerular Filtration Rate , Glucose Level 101, Calcium Level 7.5L , Digoxin Level 0.5L 06/19/17 12:15: White Blood Count 9.9, Red Blood Count 2.99L, Hemoglobin 9.0L, Hematocrit 27.1L , Mean Corpuscular Volume 90, Mean Corpuscular Hemoglobin 30.2, Mean Corpuscular Hemoglobin Concent 33.4, Red Cell Distribution Width 11.9, Platelet Count 456H, Mean Platelet Volume 5.4L, Neutrophils (%) (Auto) 67.0, Lymphocytes (%) (Auto) 18.7L, Monocytes (%) (Auto) 11.7H, Eosinophils (%) (Auto) 1.5, Basophils (%) (Auto) 1.1 Current Medications Medications (Trade) Dose Ordered Sig/Chris Route PRN Reason Start Time Stop Time Status Last Admin Dose Admin Acetaminophen (Tylenol) 650 mg Q8H PRN ORAL Mild Pain/Temp > 100.5 06/18/17 18:39 07/18/17 18:38 Carvedilol (Coreg) 6.25 mg EVERY 12 HOURS ORAL 06/18/17 21:00 07/17/17 20:59 06/19/17 09:09 Ceftriaxone Sodium 1 gm/ Dextrose 55 ml @ 110 mls/hr Q24H IVPB 06/19/17 12:00 06/23/17 11:59 06/19/17 14:59 Dextrose/Sodium Chloride 1,000 ml @ 75 mls/hr [id number] IV 06/18/17 18:30 07/16/17 20:29 06/19/17 07:48 Digoxin (Lanoxin) 0.125 mg DAILY ORAL 06/19/17 09:00 07/18/17 08:59 06/19/17 09:08 Iron Sucrose 100 mg/Sodium Chloride 60 ml @ 240 mls/hr BEDTIME IVPB 06/19/17 21:00 06/23/17 21:14 UNV Loperamide HCl (Imodium) 2 mg Q4H PRN ORAL Diarrhea 06/19/17 12:15 07/19/17 12:14 06/19/17 18:27 Lorazepam (Ativan) 0.5 mg Q6H PRN ORAL For Anxiety 06/18/17 18:38 06/24/17 18:37 06/18/17 20:36 Memantine (Namenda) 5 mg BID ORAL 06/19/17 09:00 07/16/17 10:29 06/19/17 18:27 Mirtazapine (Remeron) 15 mg BEDTIME ORAL 06/18/17 21:00 07/18/17 20:59 06/18/17 20:36 Rivaroxaban (Xarelto) 15 mg DAILY ORAL 06/19/17 09:00 07/16/17 10:29 06/19/17 09:07 LEOPOLDO MONGE Jun 19, 2017 19:51
[2017-06-19 20:00] VITALS: BP 133/73
[2017-06-19] MEDS ORDERED: D5 1/2NS 1,000 ML IV SCH (20:00)
[2017-06-19] MEDS: LORazepam 0.5mg tab ORAL PRN (20:24)
[2017-06-19] MEDS ORDERED: Iron Sucrose 100 MG in NS 55 ML IV SCH (21:00)
[2017-06-20] VITALS: BP 121/70
[2017-06-20 04:55] VITALS: BP 119/69
[2017-06-20 07:05] LABS: BASOPHILS % (AUTO) 0.7 % (0.0-2.0); EOSINOPHILS % (AUTO) 1.5 % (0.0-3.0); HEMATOCRIT 27.1 % (37.0-47.0); LYMPHOCYTES % (AUTO) 22.7 % (20.0-45.0); MEAN CORPUSCULAR VOLUME 90 FL (80-99); MONOCYTES % (AUTO) 9.2 % (1.0-10.0); NEUTROPHILS % (AUTO) 65.9 % (45.0-75.0); PLATELET COUNT 456 K/UL (150-450); RED BLOOD COUNT 3.01 M/UL (4.20-5.40); RED CELL DISTRIBUTION WIDTH 12.1 % (11.6-14.8); WHITE BLOOD COUNT 9.6 K/UL (4.8-10.8)
[2017-06-20 07:12] LABS: INR 1.4 (0.9-1.1)
[2017-06-20 07:17] LABS: ANION GAP 9 mmol/L (5-15); BLOOD UREA NITROGEN 12 mg/dL (7-18); CALCIUM 7.7 MG/DL (8.5-10.1); CARBON DIOXIDE 25 MMOL/L (21-32); CHLORIDE 104 MMOL/L (98-107); CREATININE 0.6 MG/DL (0.55-1.30); SODIUM 138 MMOL/L (136-145)
[2017-06-20 07:57] LABS: LACTATE DEHYDROGENASE 185 U/L (81-234)
[2017-06-20 08:00] VITALS: BP 129/76
[2017-06-20 08:26] LABS: % IRON SATURATION 54 % (15-50); IRON 78 ug/dL (50-175); TOTAL IRON BINDING CAPACITY 145 ug/dL (250-450)
[2017-06-20] MEDS: Memantine 5 MG TAB ORAL SCH (09:00)
[2017-06-20] MEDS: Xarelto 15mg tab ORAL SCH (09:00)
[2017-06-20] MEDS: Digoxin 0.125mg tab ORAL SCH (09:02)
[2017-06-20] MEDS: Carvedilol 6.25mg Tab ORAL SCH (09:02)
--- NOTE | 2017-06-20 10:52 | Consultation ---
History of Present Illness General Date patient seen: Jun 20, 2017 Time patient seen: 10:51 Chief Complaint: Syncope Referring physician: dr Agiurre Reason for Consultation: in hospital management Present Illness HPI 82 y/o F with hx of Alzheimer Dementia, HTN, pAfib on Xarelto is brought to ED on 06/15 with AMS. Per , patient appeared like was about to faint and took her BP and noted to be 67/40 and somewhat unresponsive. EMS called. In ED found to be on Afib with RVR. 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 U/a with pyuria and ID consulted for concern for UTI. CXR no acute process. CT head no acute process. afebrile, initial mild leukocytosis, resolved. On IV Ceftriaxone, ucx grew E.coli. Allergies: Coded Allergies: IODINE (Verified Allergy, Unknown, 06/15/17) TURKEY (Verified Allergy, Unknown, 06/15/17) Medication History Scheduled Carvedilol* (Carvedilol*), 12.5 MG ORAL EVERY 12 HOURS, (Reported) Memantine Hcl (Namenda Xr), 7 MG PO DAILY, (Reported) Mirtazapine* (Mirtazapine*), 15 MG ORAL BEDTIME, (Reported) Rivaroxaban (Xarelto), 15 MG ORAL DAILY, (Reported) Scheduled PRN Lorazepam* (Lorazepam*), 0.5 MG ORAL for For Anxiety, (Reported) Patient History Healthcare decision maker Family Resuscitation status Full Code Advanced Directive on File No Patient History Narrative PMhx: as above Shx: The patient is . The patient lives at home with her . The patient denies tobacco or alcohol use. Fhx: non contributory Review of Systems ROS Narrative unable to obtain Physical Exam Physical Exam Narrative GENERAL: The patient is a well-developed, well-nourished, somnolent white female, in no apparent distress. HEENT: Eyes, pupils equal and responsive to light and accommodation. Extraocular movements are intact. NECK: Supple without lymphadenopathy. CHEST: Lungs are clear to auscultation bilaterally without wheezes or rales. CARDIOVASCULAR: Regular rate. S1, S2 normal without murmurs, rubs, or gallops. ABDOMEN: Soft, nontender, nondistended. Positive bowel sounds. No evidence of hepatosplenomegaly. Currently, no rebound or guarding noted. EXTREMITIES: Negative for clubbing, cyanosis, or edema. NEUROLOGICAL: non verbal, no focal deficits Last 24 Hour Vital Signs Date Time Temp Pulse Resp B/P (MAP) Pulse Ox O2 Delivery O2 Flow Rate FiO2 06/20/17 09:02 97 06/20/17 09:02 97 119/69 06/20/17 08:00 98.7 88 18 129/76 97 06/20/17 04:55 98.4 97 17 119/69 96 06/20/17 00:00 98.2 100 17 121/70 96 06/19/17 20:24 61 148/60 06/19/17 20:00 98.4 98 19 133/73 99 06/19/17 16:00 97.0 61 19 148/60 96 06/19/17 12:00 98.2 74 17 125/76 96 Intake and Output 06/19/17 06/20/17 19:00 07:00 Intake Total 550 ml 547.5 ml Output Total 650 ml 1400 ml Balance -100 ml -852.5 ml Intake Oral 500 ml IV Total 50 ml 547.5 ml Output Urine Total 650 ml 1400 ml # Voids 2 Laboratory Tests Test 06/19/17 12:15 06/20/17 05:45 White Blood Count 9.9 K/UL (4.8-10.8) 9.6 K/UL (4.8-10.8) Red Blood Count 2.99 M/UL (4.20-5.40) L 3.01 M/UL (4.20-5.40) L Hemoglobin 9.0 G/DL (12.0-16.0) L 9.0 G/DL (12.0-16.0) L Hematocrit 27.1 % (37.0-47.0) L 27.1 % (37.0-47.0) L Mean Corpuscular Volume 90 FL (80-99) 90 FL (80-99) Mean Corpuscular Hemoglobin 30.2 PG (27.0-31.0) 29.9 PG (27.0-31.0) Mean Corpuscular Hemoglobin Concent 33.4 G/DL (32.0-36.0) 33.3 G/DL (32.0-36.0) Red Cell Distribution Width 11.9 % (11.6-14.8) 12.1 % (11.6-14.8) Platelet Count 456 K/UL (150-450) H 456 K/UL (150-450) H Mean Platelet Volume 5.4 FL (6.5-10.1) L 5.3 FL (6.5-10.1) L Neutrophils (%) (Auto) 67.0 % (45.0-75.0) 65.9 % (45.0-75.0) Lymphocytes (%) (Auto) 18.7 % (20.0-45.0) L 22.7 % (20.0-45.0) Monocytes (%) (Auto) 11.7 % (1.0-10.0) H 9.2 % (1.0-10.0) Eosinophils (%) (Auto) 1.5 % (0.0-3.0) 1.5 % (0.0-3.0) Basophils (%) (Auto) 1.1 % (0.0-2.0) 0.7 % (0.0-2.0) Erythrocyte Sedimentation Rate Pending Reticulocyte Count Pending Prothrombin Time 14.8 SEC (9.30-11.50) H Prothromb Time International Ratio 1.4 (0.9-1.1) H Activated Partial Thromboplast Time 40 SEC (23-33) H Sodium Level 138 MMOL/L (136-145) Potassium Level 4.0 MMOL/L (3.5-5.1) Chloride Level 104 MMOL/L (98-107) Carbon Dioxide Level 25 MMOL/L (21-32) Anion Gap 9 mmol/L (5-15) Blood Urea Nitrogen 12 mg/dL (7-18) Creatinine 0.6 MG/DL (0.55-1.30) Estimat Glomerular Filtration Rate mL/min (>60) Glucose Level 95 MG/DL (74-106) Calcium Level 7.7 MG/DL (8.5-10.1) L Iron Level 78 ug/dL (50-175) Total Iron Binding Capacity 145 ug/dL (250-450) L Percent Iron Saturation 54 % (15-50) H Unsaturated Iron Binding 67 ug/dL (112-346) L Lactate Dehydrogenase 185 U/L (81-234) Vitamin B12 Level 306 PG/ML (193-986) Folate 11.5 NG/ML (8.6-58.9) Height (Feet): 5 Height (Inches): 3.00 Weight (Pounds): 115 Medications Current Medications Medications (Trade) Dose Ordered Sig/Chris Route PRN Reason Start Time Stop Time Status Last Admin Dose Admin Acetaminophen (Tylenol) 650 mg Q8H PRN ORAL Mild Pain/Temp > 100.5 06/18/17 18:39 07/18/17 18:38 06/20/17 09:01 Carvedilol (Coreg) 6.25 mg EVERY 12 HOURS ORAL 06/18/17 21:00 07/17/17 20:59 06/20/17 09:02 Ceftriaxone Sodium 1 gm/ Dextrose 55 ml @ 110 mls/hr Q24H IVPB 06/19/17 12:00 06/23/17 11:59 06/19/17 14:59 Dextrose/Sodium Chloride 1,000 ml @ 50 mls/hr Q20H IV 06/19/17 20:00 07/19/17 19:59 06/19/17 20:24 Digoxin (Lanoxin) 0.125 mg DAILY ORAL 06/19/17 09:00 07/18/17 08:59 06/20/17 09:02 Iron Sucrose 100 mg/Sodium Chloride 60 ml @ 240 mls/hr BEDTIME IV 06/19/17 21:00 06/23/17 21:14 06/19/17 20:27 Loperamide HCl (Imodium) 2 mg Q4H PRN ORAL Diarrhea 06/19/17 12:15 07/19/17 12:14 06/19/17 18:27 Lorazepam (Ativan) 0.5 mg Q6H PRN ORAL For Anxiety 06/18/17 18:38 06/24/17 18:37 06/19/17 20:24 Memantine (Namenda) 5 mg BID ORAL 06/19/17 09:00 07/16/17 10:29 06/20/17 09:00 Mirtazapine (Remeron) 15 mg BEDTIME ORAL 06/18/17 21:00 07/18/17 20:59 06/19/17 20:24 Rivaroxaban (Xarelto) 15 mg DAILY ORAL 06/19/17 09:00 07/16/17 10:29 06/20/17 09:00 Assessment/Plan Assessment/Plan Abx: Ceftriaxone 06/15- Assessment: POssible UTI -06/15 u/a WBC tntc; ucx >100k E.coli ( R amp, Bactrim, otherwise S); 06/18 u/a neg , ucx NTD Afebrile Mild leukocytosis- resolved AFib with RVR and hypotension Acute Encephalopathy on baseline dementia- 2ry to above- improved HTN Plan: -D/c Ceftriaxone as completed 5 days of tx for possible UTI; monitor off abx -f/u cx -Monitor CBC/BMP, temperatures -aspiration precautions Thank you for this consultation. Will continue to follow along with you. Discussed with KRYSTIAN. Daniela Nicole M.D. Jun 20, 2017 10:52
[2017-06-20 12:00] VITALS: BP 100/50
[2017-06-20] MEDS ORDERED: NS 275ml ONE (15:17)
[2017-06-20] MEDS ORDERED: D5 1/2NS 1000ml IV ONE (15:17)
[2017-06-20] MEDS ORDERED: Tubing IV Secondary IV ONE (15:17)
--- NOTE | 2017-06-20 17:03 | Internal Med Progress Note ---
Subjective Date of Service: Jun 20, 2017 Physician Name Clay Perez Attending Physician Nhan Aguirre MD Allergies: Coded Allergies: IODINE (Verified Allergy, Unknown, 06/15/17) TURKEY (Verified Allergy, Unknown, 06/15/17) ROS Limited/Unobtainable: No Constitutional: Reports: no symptoms HEENT: Reports: no symptoms Cardiovascular: Reports: no symptoms Respiratory: Reports: no symptoms Gastrointestinal/Abdominal: Reports: no symptoms Genitourinary: Reports: no symptoms Neurologic/Psychiatric: Reports: no symptoms Subjective 82 YO F admitted with altered mental status. Now UTI and atrial fibrillation. Await discharge home today. Cover for Int Med-Dr Aguirre Objective Last Vital Signs Date Time Temp Pulse Resp B/P (MAP) Pulse Ox O2 Delivery O2 Flow Rate FiO2 06/20/17 12:00 98.0 81 17 100/50 98 06/19/17 04:00 Room Air Laboratory Tests Test 06/20/17 05:45 White Blood Count 9.6 K/UL (4.8-10.8) Red Blood Count 3.01 M/UL (4.20-5.40) L Hemoglobin 9.0 G/DL (12.0-16.0) L Hematocrit 27.1 % (37.0-47.0) L Mean Corpuscular Volume 90 FL (80-99) Mean Corpuscular Hemoglobin 29.9 PG (27.0-31.0) Mean Corpuscular Hemoglobin Concent 33.3 G/DL (32.0-36.0) Red Cell Distribution Width 12.1 % (11.6-14.8) Platelet Count 456 K/UL (150-450) H Mean Platelet Volume 5.3 FL (6.5-10.1) L Neutrophils (%) (Auto) 65.9 % (45.0-75.0) Lymphocytes (%) (Auto) 22.7 % (20.0-45.0) Monocytes (%) (Auto) 9.2 % (1.0-10.0) Eosinophils (%) (Auto) 1.5 % (0.0-3.0) Basophils (%) (Auto) 0.7 % (0.0-2.0) Differential Total Cells Counted 100 Neutrophils % (Manual) 66 % (45-75) Lymphocytes % (Manual) 23 % (20-45) Monocytes % (Manual) 9 % (1-10) Eosinophils % (Manual) 1 % (0-3) Basophils % (Manual) 1 % (0-2) Band Neutrophils 0 % (0-8) Platelet Estimate Adequate Platelet Morphology Normal Hypochromasia 2+ Anisocytosis 1+ Spherocytes 1+ Erythrocyte Sedimentation Rate 122 MM/HR (0-42) H Reticulocyte Count 0.3 % (0.0-2.0) Prothrombin Time 14.8 SEC (9.30-11.50) H Prothromb Time International Ratio 1.4 (0.9-1.1) H Activated Partial Thromboplast Time 40 SEC (23-33) H Sodium Level 138 MMOL/L (136-145) Potassium Level 4.0 MMOL/L (3.5-5.1) Chloride Level 104 MMOL/L (98-107) Carbon Dioxide Level 25 MMOL/L (21-32) Anion Gap 9 mmol/L (5-15) Blood Urea Nitrogen 12 mg/dL (7-18) Creatinine 0.6 MG/DL (0.55-1.30) Estimat Glomerular Filtration Rate mL/min (>60) Glucose Level 95 MG/DL (74-106) Calcium Level 7.7 MG/DL (8.5-10.1) L Iron Level 78 ug/dL (50-175) Total Iron Binding Capacity 145 ug/dL (250-450) L Percent Iron Saturation 54 % (15-50) H Unsaturated Iron Binding 67 ug/dL (112-346) L Lactate Dehydrogenase 185 U/L (81-234) Vitamin B12 Level 306 PG/ML (193-986) Folate 11.5 NG/ML (8.6-58.9) Microbiology Date/Time Source Procedure Growth Status 06/18/17 12:45 Blood Blood Culture - Preliminary NO GROWTH AFTER 24 HOURS Resulted 06/18/17 12:40 Blood Blood Culture - Preliminary NO GROWTH AFTER 24 HOURS Resulted 06/18/17 21:45 Stool Clostridium difficile Toxin Assay - Final Complete 06/18/17 09:47 Indwelling Cath Urine Culture - Preliminary NO GROWTH AFTER 24 HOURS Resulted Intake and Output 06/19/17 06/20/17 19:00 07:00 Intake Total 550 ml 547.5 ml Output Total 650 ml 1400 ml Balance -100 ml -852.5 ml Intake Oral 500 ml IV Total 50 ml 547.5 ml Output Urine Total 650 ml 1400 ml # Voids 2 Objective General Appearance: WD/WN, no apparent distress, alert EENT: PERRL/EOMI, normal ENT inspection Neck: non-tender, normal alignment, supple, normal inspection Cardiovascular: normal peripheral pulses, no gallop/murmur, no JVD, irregularly irregular Respiratory/Chest: chest wall non-tender, lungs clear, normal breath sounds, no respiratory distress, no accessory muscle use Abdomen: normal bowel sounds, non tender, soft, no organomegaly, no mass Extremities: normal range of motion, non-tender 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 Continue digoxin, coreg and xarelto. (2) Alzheimer's dementia (3) UTI (urinary tract infection) Assessment & Plan: E. coli. Continue ceftriaxone (4) Altered mental status Assessment & Plan: Metabolic encephalopathy due to UTI. (5) Diarrhea Assessment & Plan: C. Diff neg. Start imodium prn (6) Hypotension Assessment & Plan: /dehydration due to diarrhea? Fluid bolus Assessment/Plan D/C home today CLAY PEREZ Jun 20, 2017 17:02
--- NOTE | 2017-06-20 17:23 | Pulmonology Progress Note ---
Assessment/Plan Problems: (1) Hypotension (2) Atrial fibrillation with rapid ventricular response (3) UTI (urinary tract infection) (4) Anemia (5) Altered mental status Assessment/Plan heart rate better symtomatic treatment anemia w/u in progress dvt prophylaxis. dc planning Subjective ROS Limited/Unobtainable: No Constitutional: Reports: no symptoms HEENT: Repors: no symptoms Respiratory: Reports: no symptoms Allergies: Coded Allergies: IODINE (Verified Allergy, Unknown, 06/15/17) TURKEY (Verified Allergy, Unknown, 06/15/17) Objective Last 24 Hour Vital Signs Date Time Temp Pulse Resp B/P (MAP) Pulse Ox O2 Delivery O2 Flow Rate FiO2 06/20/17 12:00 98.0 81 17 100/50 98 06/20/17 10:00 98.4 06/20/17 09:02 97 06/20/17 09:02 97 119/69 06/20/17 08:00 98.7 88 18 129/76 97 06/20/17 04:55 98.4 97 17 119/69 96 06/20/17 00:00 98.2 100 17 121/70 96 06/19/17 20:24 61 148/60 06/19/17 20:00 98.4 98 19 133/73 99 Intake and Output 06/19/17 06/20/17 19:00 07:00 Intake Total 550 ml 547.5 ml Output Total 650 ml 1400 ml Balance -100 ml -852.5 ml Intake Oral 500 ml IV Total 50 ml 547.5 ml Output Urine Total 650 ml 1400 ml # Voids 2 General Appearance: WD/WN HEENT: normocephalic, anicteric Respiratory/Chest: chest wall non-tender, lungs clear Cardiovascular: normal peripheral pulses, normal rate Abdomen: soft, non tender Genitourinary: normal external genitalia Skin: no rash 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3, Red Cell Distribution Width 12.1, Platelet Count 456H, Mean Platelet Volume 5.3L, Neutrophils (%) (Auto) 65.9, Lymphocytes (%) (Auto) 22.7, Monocytes (%) (Auto) 9.2, Eosinophils (%) (Auto) 1.5, Basophils (%) (Auto) 0.7, Differential Total Cells Counted 100, Neutrophils % ( Manual) 66, Lymphocytes % (Manual) 23, Monocytes % (Manual) 9, Eosinophils % ( Manual) 1, Basophils % (Manual) 1, Band Neutrophils 0, Platelet Estimate Adequate, Platelet Morphology Normal, Hypochromasia 2+, Anisocytosis 1+, Spherocytes 1+, Erythrocyte Sedimentation Rate 122H, Reticulocyte Count 0.3, Prothrombin Time 14.8H, Prothromb Time International Ratio 1.4H, Activated Partial Thromboplast Time 40H, Sodium Level 138, Potassium Level 4.0, Chloride Level 104, Carbon Dioxide Level 25, Anion Gap 9, Blood Urea Nitrogen 12, Creatinine 0.6, Estimat Glomerular Filtration Rate , Glucose Level 95, Calcium Level 7.7L, Iron Level 78, Total Iron Binding Capacity 145L, Percent Iron Saturation 54H, Unsaturated Iron Binding 67L, Lactate Dehydrogenase 185, Vitamin B12 Level 306, Folate 11.5 LEOPOLDO MONGE Jun 20, 2017 17:23
--- NOTE | 2017-06-21 10:28 | Diagnostic Imaging Report ---
Indication: Chest pain Technique: XRAY Chest 2v Comparison: 06/15/2017 Findings: Cardiomediastinal silhouette is stable. There is elevation of the right hemidiaphragm with right basilar opacities. There is no pneumothorax or obvious effusion. Osseous structures are stable. Impression: Patient rotation limiting evaluation. Elevation of the right hemidiaphragm with right basilar opacities probably representing atelectasis or scarring. Clinical correlation/follow-up recommended.
--- NOTE | 2017-06-22 14:38 | Discharge Summary ---
Discharge Summary Hospital Course Date of Admission Jun 15, 2017 at 14:15 Date of Discharge Jun 20, 2017 at 15:18 Admitting Diagnosis syncope HPI Kiarra Iniguez is a 82 year old female who was admitted on Jun 15, 2017 at 14:15 for Syncope Hospital Course [id number] Discharge Discharge Disposition Patient was discharged to Home (01) Discharge Diagnoses: Cleo Parkinson NP Jun 22, 2017 14:38
--- NOTE | 2017-06-22 18:00 | Discharge Summary 2 SIG ---
DATE OF ADMISSION: 06/15/2017 DATE OF DISCHARGE: 06/20/2017 ATTENDING PHYSICIAN: Nhan Aguirre M.D. CONSULTANTS: 1. Naga Churchill M.D. 2. Daniela Nicole M.D. 3. Chip Osuna M.D. BRIEF HOSPITAL COURSE: The patient is an 82-year-old female, who presented with chief complaint of altered mental status. The patient has history of Alzheimer's dementia and per , the patient looked like she was going to faint. Blood pressure reading was 67/40 and the patient appeared unresponsive. The patient was then transported to the emergency room via EMS where she was found to be in atrial fibrillation with rapid ventricular response. She has history of atrial fibrillation and is on Xarelto. Head CT was negative for acute intracranial bleed or mass effect. There were chronic age-related changes seen. Urinalysis showed 3+ leukocyte esterase with too many to count WBC and 5 to 10 RBCs. Troponin was negative. She was started on intravenous ceftriaxone and was admitted to telemetry for altered mental status. She was continued on Xarelto and Coreg. On arrival to the floor, the patient was still tachycardic at heart rate of 130s. She was given digoxin intravenous x1 and Coreg dose was increased to 6.25 mg b.i.d. Urine culture with growth of E. coli. She was given five days IV antibiotic with ceftriaxone and was monitored off antibiotic treatment. She was started on digoxin 0.125 mg p.o. daily and had better heart rate control. She was eventually discharged home. FINAL DIAGNOSES: 1. Altered mental status/acute metabolic encephalopathy due to urinary tract infection. 2. Escherichia coli urinary tract infection. 3. Atrial fibrillation with rapid ventricular response. 4. Alzheimer's dementia. 5. Diarrhea with Clostridium difficile negative. 6. Hypotension, possibly secondary to dehydration. DISCHARGE DISPOSITION: The patient was discharged home. DISCHARGE INSTRUCTIONS: Follow up with PMD in a week. Naga Churchill M.D. I have been assigned to dictate discharge summary on this account and I was not involved in the patient's management. Cleo Parkinson N.P. DR: DIXIE JOB#: [id number] CC:
--- NOTE | 2017-06-26 11:11 | Cardiology Report ---
APPROVED REPORT EXAM: Two-dimensional and M-mode echocardiogram with Doppler and color Doppler. INDICATION Palpitations M-Mode DIMENSIONS IVSd0.9 (0.7-1.1cm)Left Atrium (MM)4.8 (1.6-4.0cm) LVDd3.0 (3.5-5.6cm)Aortic Root2.1 (2.0-3.7cm) PWd0.8 (0.7-1.1cm)Aortic Cusp Exc.1.5 (1.5-2.0cm) LVDs2.3 (2.5-4.0cm) PWs0.9 cm Normal left ventricular chamber size, systolic function and wall motion. Left ventricular ejection fraction estimated to be 60 %. No evidence of left ventricular hypertrophy. No evidence of pericardial effusion. Mild left atrial enlargement. Right cardiac chamber sizes are within normal limits. Focal aortic valve sclerosis with adequate cusp excursion. Thickened mitral valve leaflets with normal excursion. Mitral annulus and aortic root calcification. Normal pulmonic valve structure. Normal tricuspid valve structure. IVC at normal size with physiological collapse. A color flow and spectral Doppler study was performed and revealed: Trace aortic insufficiency. Mild to moderate mitral regurgitation. 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 Mild tricuspid regurgitation. Tricuspid systolic velocities suggests peak right ventricular systolic pressure of 32 mmHg. Trace pulmonic regurgitation present.
== END 2017-06-20 15:18 | disposition home or self-care (01) | DRG 689 ==
LOC: EDBD 12:38 → EMR 13:12 → 4E 14:15 → EDBEDREQSVC 20:01 → EDBEDREQ 20:37 → ENRESERV 20:40 → 2E 06-16 17:54 → 3E 06-18 18:19
DX: N39.0 Urinary tract infection, site not specified (principal); G93.41 Metabolic encephalopathy; E46 Unspecified protein-calorie malnutrition; I95.9 Hypotension, unspecified; I48.91 Unspecified atrial fibrillation; G30.9 Alzheimer's disease, unspecified; E86.0 Dehydration; F02.80 Dementia in other diseases classified elsewhere, unspecified severity, without behavioral disturbance, psychotic disturbance, mood disturbance, and anxiety; R41.82 Altered mental status, unspecified; Z68.20 Body mass index [BMI] 20.0-20.9, adult; B96.20 Unspecified Escherichia coli [E. coli] as the cause of diseases classified elsewhere; R19.7 Diarrhea, unspecified; Z79.01 Long term (current) use of anticoagulants; I10 Essential (primary) hypertension; D63.8 Anemia in other chronic diseases classified elsewhere
CPT/HCPCS: 36415; 70450; 71045; 80048; 80053; 80162; 81001; 82270; 82378; 82550; 82553; 82607; 82728; 82746; 82747; 83540; 83550; 83615; 83735; 83880; 84100; 84439; 84443; 84484; 85007; 85025; 85044; 85060; 85610; 85651; 85730; 87040; 87086; 87181; 87324; 93005; 93306; 99285